=== PATIENT | male | born 1940 | race Caucasian/White ===

== ENCOUNTER → 2017-06-09 10:47 | Outpatient (CLI) | payer MEDICARE, OTHER, SELFPAY ==
[2017-06-09 11:56] LABS: INR 2.8 (0.9-1.3); Prothrombin Time 30.4 SECONDS (10.1-12.7)
[2017-06-09 12:08] LABS: BUN Creatinine Ratio 16.7 (6-22); Calcium 8.8 mg/dL (8.4-10.2); Estimated Glomerular Filt Rate > 60.0 mL/min (>60); Glucose 78 mg/dL (80-110); HEMOLYSIS < 15 (0-50); Potassium 4.7 mmol/L (3.4-5.1); Sodium 142 mmol/L (137-145)
== END ==
PROVIDERS: PCP Internal Medicine; Visit Provider Pharmacist Pharmacotherapy
DX: E87.8 Other disorders of electrolyte and fluid balance, not elsewhere classified (principal); Z79.01 Long term (current) use of anticoagulants; Z95.811 Presence of heart assist device
CPT/HCPCS: 36415; 80048; 85610

== ENCOUNTER → 2017-06-25 08:14 | Outpatient (CLI) | payer MEDICARE, OTHER, SELFPAY ==
--- NOTE | 2017-06-25 | DI.ECHO.S_ITS ---
[facility]---------+ [facility] +---------+ : : [address] : [place] : : : : [id number] : : : : Phone: [phone]+ Echocardiogram Report + + :Name: ESSENCE HOLT Study Date: 06/25/2017 Height: 71 in : :[facility] Exam Location: IS Weight: 189 lb: : Gender: Male BSA: 2.1 m2 : :: 1940 Age: 76 yrs : :Reason For Study: LVAD : :Ordering Physician: Dr. Madrigal : :Medardo Performed By: Nisha Page : :Referring: UNSPECIFIED : + + Interpretation Summary The left ventricle is severely dilated. The ejection fraction is estimated to be 10-15%. This is unchanged compared to the previous study. LVAD cannula seen in the left ventricular cavity. The right ventricle is at the upper limits of normal in size. Right ventricular systolic function is moderately reduced. There is a pacemaker lead in the right ventricle. There is trace tricuspid regurgitation. Compared to the prior echo exam, there has been a decrease in TR severity. There is mild mitral regurgitation. Compared to the prior echo study, there has been a decrease in the severity of mitral regurgitation. The IVC is of normal diameter and collapses less than 50% with a sniff. This suggests a right atrial pressure of 8 mm Hg. There is a small pericardial effusion (anterior to right ventricle) noted. There are no echocardiographic indications of cardiac tamponade. Procedure: A two-dimensional transthoracic echocardiogram with color flow and Doppler was performed. The study quality was technically limited. The study quality was technically difficult. Comparison is made with the echocardiogram of 05/16/16. I was unable to get a blood pressure reading due to the LVAD. The patient declined the use of definity.His LVAD was put in May of 2016. The heart rate ranged between 75-79 bpm during the study. The patient was in normal sinus rhythm during the exam. The patient had a bundle branch block rhythm during the exam. Left Ventricle: The left ventricle is severely dilated. There is normal left ventricular wall thickness. There is no thrombus. LVAD cannula seen in the left ventricular cavity. The ejection fraction is estimated to be 10-15%. This is unchanged compared to the previous study. There is severe global hypokinesis of the left ventricle. Could not assess diastolic function. Right Ventricle: The right ventricle is not well visualized. The right ventricle is at the upper limits of normal in size. There is a pacemaker lead in the right ventricle. Right ventricular systolic function is moderately reduced. Atria: Both atria are moderately dilated. The right atrium has mildly decreased in size since the prior echo exam. Mitral Valve: The mitral valve is not well visualized. There is mild mitral annular calcification. The mitral valve leaflets are slightly calcified. There is mild mitral regurgitation. Compared to the prior echo study, there has been a decrease in the severity of mitral regurgitation. Aortic Valve: The aortic valve is not well visualized. Tricuspid Valve: The tricuspid valve is not well visualized, but is grossly normal. There is trace tricuspid regurgitation. Compared to the prior echo exam, there has been a decrease in TR severity. Pulmonic Valve: The pulmonic valve is not well visualized. Great Vessels: The aortic root is normal size. The aortic arch could not be visualized. The ascending aorta could not be visualized. The pulmonary is not well visualized. The IVC is of normal diameter and collapses less than 50% with a sniff. This suggests a right atrial pressure of 8 mm Hg. Pericardium/ Pleura There is a small pericardial effusion noted. There are no echocardiographic indications of cardiac tamponade. There is no pleural effusion. MMode/2D Measurements & Calculations LVIDd: 6.7 cm Ao root diam: 2.8 cm LVIDs: 6.1 cm FS: 9.7 % EPSS: 2.6 cm IVSd: 0.76 cm LVPWd: 0.92 cm LV dyson. diameter/BSA (cm/m^2): 3.3 LV sys. diameter/BSA (cm/m^2): 3.0 LA A2 area: 27.5 cm2 RA long axis: 4.7 cm LA A4 area: 23.3 cm2 RA area: 20.1 cm2 LA length (vol): 6.0 cm RA vol: 73.1 ml LA vol: 90.6 ml RA : 35.5 ml/m2 LA vol index: 44.0 ml/m2 IVC diam: 1.3 cm Doppler Measurements & Calculations PA V2 max: 40.6 cm/sec PA V2 mean: 30.9 cm/sec PA mean P.41 mmHg PA Accel Time: 0.09 sec Reading Physician:ENEDINA
== END ==
PROVIDERS: PCP Internal Medicine; Visit Provider Nurse Practitioner Adult Health
DX: I51.7 Cardiomegaly (principal); I07.1 Rheumatic tricuspid insufficiency; I31.3 Pericardial effusion (noninflammatory)
CPT/HCPCS: 93306

== ENCOUNTER → 2017-06-29 12:24 | Outpatient (CLI) | payer MEDICARE, OTHER, SELFPAY ==
[2017-06-29 13:17] LABS: INR 2.6 (0.9-1.3); Prothrombin Time 28.1 SECONDS (10.1-12.7)
== END ==
PROVIDERS: PCP Internal Medicine; Visit Provider Pharmacist Pharmacotherapy
DX: Z79.01 Long term (current) use of anticoagulants (principal)
CPT/HCPCS: 36415; 85610

== ENCOUNTER → 2017-07-07 10:37 | Outpatient (CLI) | payer MEDICARE, OTHER, SELFPAY ==
[2017-07-07 12:55] LABS: INR 2.2 (0.9-1.3); Prothrombin Time 23.8 SECONDS (10.1-12.7)
== END ==
PROVIDERS: PCP Internal Medicine; Visit Provider Pharmacist Pharmacotherapy
DX: Z79.01 Long term (current) use of anticoagulants (principal)
CPT/HCPCS: 36415; 85610

== ENCOUNTER → 2017-07-14 10:30 | Outpatient (CLI) | payer MEDICARE, OTHER, SELFPAY ==
[2017-07-14 11:54] LABS: INR 2.5 (0.9-1.3); Prothrombin Time 26.8 SECONDS (10.1-12.7)
== END ==
PROVIDERS: PCP Internal Medicine; Visit Provider Pharmacist Pharmacotherapy
DX: Z79.01 Long term (current) use of anticoagulants (principal)
CPT/HCPCS: 36415; 85610

== ENCOUNTER → 2017-07-21 10:41 | Outpatient (CLI) | payer MEDICARE, OTHER, SELFPAY ==
[2017-07-21 11:38] LABS: INR 2.5 (0.9-1.3); Prothrombin Time 26.9 SECONDS (10.1-12.7)
== END ==
PROVIDERS: PCP Internal Medicine; Visit Provider Pharmacist Pharmacotherapy
DX: Z79.01 Long term (current) use of anticoagulants (principal)
CPT/HCPCS: 36415; 85610

== ENCOUNTER → 2017-07-24 10:05 | Outpatient (CLI) | payer MEDICARE, OTHER, SELFPAY ==
[2017-07-24 10:58] LABS: Add Manual Diff / Slide Review NO; Basophils Percent Auto 0.7 % (0-2); Eosinophils Percent Auto 3.7 % (2-4); Hematocrit 42.8 % (41-53); Hemoglobin 14.5 g/dL (13.5-17.5); Lymphocytes Percent Auto 27.1 % (25-40); Mean Corpuscular HGB Conc 33.8 % (30-36); Mean Corpuscular Hemoglobin 28.9 PG (26-34); Mean Corpuscular Volume 85.5 fL (80-100); Monocytes Percent Auto 10.4 % (3-14); Neutrophils Absolute Auto 6200 /uL (3000-5900); Neutrophils Percent Auto 58.1 % (50-75); Platelet Count 179 X10^3/uL (150-400); Red Blood Cell Count 5.01 X10^6/uL (4.5-5.9); Red Cell Distribution Width 14.2 % (11.6-14.8); White Blood Cell Count 10.7 X10^3/uL (4.5-11.0)
== END ==
PROVIDERS: PCP Internal Medicine; Visit Provider Internal Medicine Advanced Heart Failure and Transplant Cardiology
DX: I42.9 Cardiomyopathy, unspecified (principal); Z95.811 Presence of heart assist device
CPT/HCPCS: 36415; 85025

== ENCOUNTER → 2017-07-28 10:38 | Outpatient (CLI) | payer MEDICARE, OTHER, SELFPAY ==
[2017-07-28 12:02] LABS: BUN Creatinine Ratio 23.3 (6-22); Blood Urea Nitrogen 21 mg/dL (9-20); Calcium 9.4 mg/dL (8.4-10.2); Carbon Dioxide 28 mmol/L (22-32); Chloride 102 mmol/L (98-107); Estimated Glomerular Filt Rate > 60.0 mL/min (>60); Glucose 76 mg/dL (80-110); HEMOLYSIS < 15 (0-50); Sodium 142 mmol/L (137-145)
== END ==
PROVIDERS: PCP Internal Medicine; Visit Provider Internal Medicine Advanced Heart Failure and Transplant Cardiology
DX: Z95.811 Presence of heart assist device (principal); E87.8 Other disorders of electrolyte and fluid balance, not elsewhere classified
CPT/HCPCS: 36415; 80048

== ENCOUNTER → 2017-08-04 10:31 | Outpatient (CLI) | payer MEDICARE, OTHER, SELFPAY ==
[2017-08-04 12:46] LABS: INR 2.6 (0.9-1.3); Prothrombin Time 28.2 SECONDS (10.1-12.7)
== END ==
PROVIDERS: PCP Internal Medicine; Visit Provider Pharmacist Pharmacotherapy
DX: Z79.01 Long term (current) use of anticoagulants (principal)
CPT/HCPCS: 36415; 85610

== ENCOUNTER → 2017-08-07 09:57 | Outpatient (CLI) | payer MEDICARE, OTHER, SELFPAY ==
[2017-08-07 10:45] LABS: Blood Urea Nitrogen 20 mg/dL (9-20); Calcium 9.1 mg/dL (8.4-10.2); Carbon Dioxide 30 mmol/L (22-32); Chloride 102 mmol/L (98-107); Estimated Glomerular Filt Rate > 60.0 mL/min (>60); Glucose 64 mg/dL (80-110); HEMOLYSIS < 15 (0-50); Potassium 4.4 mmol/L (3.4-5.1); Sodium 142 mmol/L (137-145)
== END ==
PROVIDERS: PCP Internal Medicine; Visit Provider Internal Medicine Advanced Heart Failure and Transplant Cardiology
DX: Z95.811 Presence of heart assist device (principal); E87.8 Other disorders of electrolyte and fluid balance, not elsewhere classified
CPT/HCPCS: 36415; 80048

== ENCOUNTER → 2017-09-01 10:28 | Outpatient (CLI) | payer MEDICARE, OTHER, SELFPAY ==
[2017-09-01 11:26] LABS: INR 2.6 (0.9-1.3); Prothrombin Time 29.4 SECONDS (10.1-12.7)
== END ==
PROVIDERS: PCP Internal Medicine; Visit Provider Pharmacist Pharmacotherapy
DX: Z79.01 Long term (current) use of anticoagulants (principal)
CPT/HCPCS: 36415; 85610

== ENCOUNTER → 2017-09-15 10:18 | Outpatient (CLI) | payer MEDICARE, OTHER, SELFPAY ==
[2017-09-15 13:19] LABS: INR 2.7 (0.9-1.3); Prothrombin Time 29.8 SECONDS (10.1-12.7)
== END ==
PROVIDERS: PCP Internal Medicine; Visit Provider Pharmacist Pharmacotherapy
DX: Z79.01 Long term (current) use of anticoagulants (principal)
CPT/HCPCS: 36415; 85610

== ENCOUNTER → 2017-09-29 10:40 | Outpatient (CLI) | payer MEDICARE, OTHER, SELFPAY ==
[2017-09-29 11:17] LABS: INR 2.8 (0.9-1.3); Prothrombin Time 31.1 SECONDS (10.1-12.7)
== END ==
PROVIDERS: PCP Internal Medicine; Visit Provider Pharmacist Pharmacotherapy
DX: Z79.01 Long term (current) use of anticoagulants (principal)
CPT/HCPCS: 36415; 85610

== ENCOUNTER → 2017-11-03 11:05 | Outpatient (CLI) | payer MEDICARE, OTHER, SELFPAY ==
[2017-11-03 12:40] LABS: INR 2.9 (0.9-1.3); Prothrombin Time 32.7 SECONDS (10.1-12.7)
== END ==
PROVIDERS: PCP Internal Medicine; Visit Provider Pharmacist Pharmacotherapy
DX: Z79.01 Long term (current) use of anticoagulants (principal)
CPT/HCPCS: 36415; 85610

== ENCOUNTER → 2017-11-17 10:33 | Outpatient (CLI) | payer MEDICARE, OTHER, SELFPAY ==
[2017-11-17 12:03] LABS: INR 2.8 (0.9-1.3); Prothrombin Time 30.9 SECONDS (10.1-12.7)
== END ==
PROVIDERS: PCP Internal Medicine; Visit Provider Pharmacist Pharmacotherapy
DX: Z79.01 Long term (current) use of anticoagulants (principal)
CPT/HCPCS: 36415; 85610

== ENCOUNTER → 2017-12-01 10:59 | Outpatient (CLI) | payer MEDICARE, OTHER, SELFPAY ==
[2017-12-01 12:16] LABS: INR 2.9 (0.9-1.3); Prothrombin Time 32.4 SECONDS (10.1-12.7)
== END ==
PROVIDERS: PCP Internal Medicine; Visit Provider Pharmacist
DX: Z79.01 Long term (current) use of anticoagulants (principal)
CPT/HCPCS: 36415; 85610

== ENCOUNTER 2018-01-19 14:11 | Emergency (ER) | payer MEDICARE, OTHER, SELFPAY ==
[2018-01-19] VITALS (10 sets, daily range): PULSE 103–115; RESP 22–37; O2SAT 91–96; BMI 27.9
--- NOTE | 2018-01-19 14:17 | DI.RAD.S_ITS ---
PROCEDURE: XR CHEST 1V INDICATIONS: short of breath TECHNIQUE: One view of the chest was acquired. COMPARISON: [facility], , CHEST 1 VIEW, 05/11/2016, 22:00. FINDINGS: Surgical changes and devices: Left chest wall AICD appear stable in position. There is an overlying device projecting over the left lung base peripherally as well as post surgical change. Lungs and pleura: There is a probable small left pleural effusion with associated left basilar consolidation or compressive atelectasis. There is increased pulmonary edema. Mediastinum: Mediastinal contours appear unchanged. Heart size is enlarged. Bones and chest wall: No suspicious bony lesions. Overlying soft tissues appear unremarkable. IMPRESSION: 1. Probable small left pleural effusion with left basilar consolidation or compressive atelectasis. 2. Bilateral pulmonary edema. Dictated by: Kenan Swenson M.D. on 01/19/2018 at 14:58 Approved by: Kenan Swenson M.D. on 01/19/2018 at 15:09
[2018-01-19 14:32] LABS: Add Manual Diff / Slide Review NO; Basophils Percent Auto 0.2 % (0-2); Hematocrit 39.6 % (41-53); Hemoglobin 13.1 g/dL (13.5-17.5); Lymphocytes Percent Auto 1.9 % (25-40); Mean Corpuscular HGB Conc 33.1 % (30-36); Mean Corpuscular Hemoglobin 27.2 PG (26-34); Mean Corpuscular Volume 82.3 fL (80-100); Monocytes Percent Auto 3.5 % (3-14); Neutrophils Absolute Auto 22200 /uL (3000-5900); Neutrophils Percent Auto 94.4 % (50-75); Platelet Count 191 X10^3/uL (150-400); Red Blood Cell Count 4.81 X10^6/uL (4.5-5.9); Red Cell Distribution Width 15.1 % (11.6-14.8); White Blood Cell Count 23.5 X10^3/uL (4.5-11.0)
[2018-01-19 14:50] LABS: Alanine Aminotransferase 26 IU/L (21-72); Albumin 4.5 g/dL (3.5-5.0); Albumin Globulin Ratio 1.6 (1.0-2.8); Alkaline Phosphatase 94 U/L (38-126); Aspartate Aminotransferase 27 IU/L (17-59); Bilirubin Total 1.2 mg/dL (0.2-1.3); Blood Urea Nitrogen 18 mg/dL (9-20); Calcium 8.9 mg/dL (8.4-10.2); Carbon Dioxide 23 mmol/L (22-32); Chloride 103 mmol/L (98-107); Creatine Kinase 131 U/L (55-170); Estimated Glomerular Filt Rate > 60.0 mL/min (>60); Globulin 2.9 g/dL (1.7-4.1); Glucose 228 mg/dL (80-110); HEMOLYSIS < 15 (0-50); Magnesium 1.8 mg/dL (1.6-2.3); Potassium 4.3 mmol/L (3.4-5.1); Sodium 142 mmol/L (137-145); Total Protein 7.4 g/dL (6.3-8.2)
[2018-01-19 14:56] LABS: INR 5.1 (0.9-1.3); PTT Partial Thromboplastin Tim 53 SECONDS (26.4-36.2)
[2018-01-19 15:05] LABS: Creatine Kinase MB 3.99 ng/mL (<2.37)
--- NOTE | 2018-01-19 15:09 | ED.SOB ---
HPI - SOB/Dyspnea General Chief Complaint: Shortness of Breath/Dyspnea Stated Complaint: SOB Time Seen by Provider: 01/19/18 14:16 Source: patient and EMS Mode of arrival: EMS Limitations: no limitations History of Present Illness Patient is a 77-year-old male with history of LVAD, COPD severe CHF presenting with shortness of breath. He recently got back from a long trip. He has had increased productive cough no body aches or chest pain. Today his shortness of breath got much worse and required EMS. He says that he took a 40 mg dose of prednisone this morning because that usually helps with his coughing. He has it did not help with his coughing. He has not had a documented fever. MD Complaint: shortness of breath and cough Severity: moderate Relieving factors: oxygen Known history of: congestive heart failure Related Data Home Medications Medication Instructions Recorded Confirmed atorvastatin [Lipitor] 10 mg PO DAILY #0 05/11/16 01/19/18 lorazepam 0.5 - 1 mg PO Q8H PRN #0 05/11/16 01/19/18 acetaminophen [Tylenol] 650 mg PO PRN PRN 01/19/18 01/19/18 albuterol sulfate 2.5 mg INHALATION Q6-8H PRN 01/19/18 01/19/18 albuterol sulfate 3 ml INHALATION PRN PRN 01/19/18 01/19/18 albuterol sulfate [ProAir HFA] 2 puff INHALATION Q4H PRN 01/19/18 01/19/18 amiodarone 200 mg PO DAILY 01/19/18 01/19/18 aspirin 324 mg PO DAILY 01/19/18 01/19/18 docusate sodium 100 mg PO PRN PRN 01/19/18 01/19/18 fluticasone-salmeterol [Advair 1 puff INHALATION BID 01/19/18 01/19/18 Diskus] glipizide 5 mg PO DAILY 01/19/18 01/19/18 loratadine 10 mg PO DAILY PRN 01/19/18 01/19/18 magnesium hydroxide 400 mg PO BID 01/19/18 01/19/18 metoprolol succinate 12.5 mg PO BID 01/19/18 01/19/18 multivitamin 1 tab PO DAILY 01/19/18 01/19/18 pantoprazole 40 mg PO DAILY 01/19/18 01/19/18 polyethylene glycol 3350 17 g PO DAILY 01/19/18 01/19/18 prednisone 10 mg PO DAILY PRN 01/19/18 01/19/18 sennosides [senna] 17.2 mg PO BEDTIME PRN 01/19/18 01/19/18 sodium chloride 2 spray INTRANASAL Q2H PRN 01/19/18 01/19/18 tiotropium bromide [Spiriva with 1 cap INHALATION QAM 01/19/18 01/19/18 HandiHaler] torsemide 10 mg PO DAILY 01/19/18 01/19/18 triazolam 0.125 mg PO BEDTIME PRN 01/19/18 01/19/18 warfarin 4 mg PO SUMOWETHFRSA 01/19/18 01/19/18 warfarin 5 mg PO TU 01/19/18 01/19/18 Allergies Allergy/AdvReac Type Severity Reaction Status Date / Time metformin Allergy Intermediate SOB Verified 01/19/18 14:16 azithromycin [AZITHROMYCIN] Allergy Unknown Verified 01/19/18 14:16 lovastatin [LOVASTATIN] Allergy Unknown NECK PAIN Verified 01/19/18 14:16 oxycodone [From PERCOCET] Allergy Unknown RASH Verified 01/19/18 14:16 Penicillins Allergy Unknown Verified 01/19/18 14:16 pravastatin [PRAVASTATIN] Allergy Unknown Verified 01/19/18 14:16 Sulfa (Sulfonamide Allergy Unknown Verified 01/19/18 14:16 Antibiotics) levofloxacin [From LEVAQUIN] AdvReac Unknown BURSITIS Verified 01/19/18 14:16 Review of Systems Review of Systems All systems reviewed & are unremarkable except as noted in HPI and below Constitutional Denies chills, Denies fever(s), Denies lethargy and Reports weakness Cardiovascular Reports as per HPI and Reports dyspnea Respiratory Reports as per HPI, Reports cough, Denies hemoptysis, Reports excessive phlegm production and Reports dyspnea Gastrointestinal Gastrointestinal: Denies abdominal pain, Denies change in bowel habits, Denies diarrhea, Denies nausea and Denies vomiting Musculoskeletal Denies back pain, Denies muscle weakness, Denies numbness and Denies tingling Integumentary/Breasts Denies pruritus, Denies erythema, Denies rash and Denies wounds Neurologic Denies numbness, Denies tingling and Reports weakness PFSH Medical History CHF (congestive heart failure) (Chronic) COPD (chronic obstructive pulmonary disease) (Chronic) LVAD (left ventricular assist device) present (Chronic) Social History marital status: Exam Initial Vital Signs Initial Vital Signs: Vital Signs Respiratory Rate 22 01/19/18 14:16 Pulse Oximetry 96 01/19/18 14:16 Const General: cooperative, in distress and ill appearing (Chronically ill) Nutritional Appearance: average body habitus Orientation: alert, awake and oriented x3 HENMT Head: normal to inspection and normocephalic Eyes General: appearance normal, both eyes and all related structures Neck Neck: normal visual inspection, full ROM and JVD Chest Chest: normal inspection of the chest Resp Effort & Inspection: normal respiratory effort, not able to speak in complete sentences, tachypneic and no use of accessory muscles Auscultation: clear to auscultation bilaterally, crackles, no rales, no rhonchi and wheezes Cardio Pulses: radial pulses present Other: LVAD present GI Inspection: non-distended Palpation: soft, no hepatosplenomegaly, No guarding, No pulsatile mass and No tender Auscultation: normal bowel sounds Skin General: no rashes or lesions noted, No jaundice and No petechiae Neuro General: alert, oriented x3, gait normal and no focal motor deficits Speech: speech normal Extrem General: full ROM, no clubbing, cyanosis or edema, no pedal edema and no calf tenderness Course Orders Ordered: ED Orders 01/19/18 14:17 Consult to Respiratory Therapy Evaluate & Treat XR chest 1V Stat EKG-12 Lead Stat 01/19/18 14:25 B Type Natriuretic Peptide Stat Complete Blood Count AUTO DIFF Stat Comprehensive Metabolic Panel Stat Lactate (Lactic Acid) Stat Magnesium Stat Partial Thromboplastin Time Stat Prothrombin Time INR Stat Troponin & CK Cardiac Panel Stat 01/19/18 15:10 Blood Culture Stat 01/19/18 15:21 Influenza A and B by PCR Rapid Stat Discontinued Medications Albuterol (Ventolin) 5 mg INH NOW ONE Stop: 01/19/18 17:10 Last Admin: 01/19/18 17:30 Dose: 5 mg Albuterol/Ipratropium (Duoneb) 3 ml INH NOW ONE Stop: 01/19/18 16:56 Last Admin: 01/19/18 16:57 Dose: 3 ml Ceftriaxone Sodium/Dextrose (Rocephin) 1 gm in 50 mls @ 100 mls/hr IV NOW ONE Stop: 01/19/18 15:54 Last Infusion: 01/19/18 16:11 Dose: 0 mls/hr Admin: 01/19/18 15:35 Dose: 100 mls/hr Vancomycin HCl 1,250 mg/ (Sodium Chloride) 250 mls @ 250 mls/hr IV NOW ONE Stop: 01/19/18 15:23 Last Infusion: 01/19/18 17:16 Dose: 0 mls/hr Admin: 01/19/18 15:49 Dose: 250 mls/hr Vital Signs - 8 hr 01/19/18 14:16 01/19/18 14:20 01/19/18 15:00 Pulse Rate Respiratory Rate 22 30 H 32 H Pulse Oximetry 96 93 91 01/19/18 16:01 01/19/18 16:58 Pulse Rate 103 H Respiratory Rate 35 H 37 H Pulse Oximetry 92 93 MDM - SOB/Dyspnea Lab Data Attestation: I reviewed the patient's lab results. Result diagrams: 01/19/18 14:25 01/19/18 14:25 Lab Results 01/19/18 01/19/18 01/19/18 Range/Units 14:25 14:25 14:25 WBC 23.5 H (4.5-11.0) X10^3/uL RBC 4.81 (4.5-5.9) X10^6/uL Hgb 13.1 L (13.5-17.5) g/dL Hct 39.6 L (41-53) % MCV 82.3 (80-100) fL MCH 27.2 (26-34) PG MCHC 33.1 (30-36) % RDW 15.1 H (11.6-14.8) % Plt Count 191 (150-400) X10^3/uL Neut % (Auto) 94.4 H (50-75) % Lymph % (Auto) 1.9 L (25-40) % [place] % (Auto) 3.5 (3-14) % Eos % (Auto) 0.0 L (2-4) % Baso % (Auto) 0.2 (0-2) % Neut # (Auto) 50154 H (6913-3403) /uL PT 60.0 H (10.1-12.7) SECONDS INR 5.1 H* (0.9-1.3) APTT 53 H (26.4-36.2) SECONDS ABG pH (7.35-7.45) ABG pCO2 (35-45) mmHg ABG pO2 (80-100) mmHg ABG HCO3 (22-26) mmol/L ABG Total CO2 (21-31) mmol/L ABG O2 Saturation (95-100) % ABG Base Excess (-2-2) mmol/L FiO2 Sodium 142 (137-145) mmol/L Potassium 4.3 (3.4-5.1) mmol/L Chloride 103 (98-107) mmol/L Carbon Dioxide 23 (22-32) mmol/L BUN 18 (9-20) mg/dL Creatinine 1.00 (0.66-1.25) mg/dL Estimated GFR > 60.0 (>60) mL/min BUN/Creatinine Ratio 18.0 (6-22) Glucose 228 H (80-110) mg/dL Lactate (0.7-2.1) mmol/L Calcium 8.9 (8.4-10.2) mg/dL Magnesium 1.8 (1.6-2.3) mg/dL Total Bilirubin 1.2 (0.2-1.3) mg/dL AST 27 (17-59) IU/L ALT 26 (21-72) IU/L Alkaline Phosphatase 94 (38-126) U/L Total Creatine Kinase 131 (55-170) U/L CK-MB (CK-2) 3.99 H (<2.37) ng/mL CK-MB (CK-2) Rel Index 3.0 (1.5-5.0) % Troponin I 0.020 (0.01-0.034) ng/mL B-Natriuretic Peptide 566.0 H (<100) Total Protein 7.4 (6.3-8.2) g/dL Albumin 4.5 (3.5-5.0) g/dL Globulin 2.9 (1.7-4.1) g/dL Albumin/Globulin Ratio 1.6 (1.0-2.8) Influenza A & B (PCR) (Negative) 01/19/18 01/19/18 01/19/18 Range/Units 14:25 15:30 17:24 WBC (4.5-11.0) X10^3/uL RBC (4.5-5.9) X10^6/uL Hgb (13.5-17.5) g/dL Hct (41-53) % MCV (80-100) fL MCH (26-34) PG MCHC (30-36) % RDW (11.6-14.8) % Plt Count (150-400) X10^3/uL Neut % (Auto) (50-75) % Lymph % (Auto) (25-40) % Nicollet % (Auto) (3-14) % Eos % (Auto) (2-4) % Baso % (Auto) (0-2) % Neut # (Auto) (1690-9881) /uL PT (10.1-12.7) SECONDS INR (0.9-1.3) APTT (26.4-36.2) SECONDS ABG pH 7.34 L (7.35-7.45) ABG pCO2 37.7 (35-45) mmHg ABG pO2 73 L (80-100) mmHg ABG HCO3 20 L (22-26) mmol/L ABG Total CO2 21 (21-31) mmol/L ABG O2 Saturation 94 L (95-100) % ABG Base Excess -6.0 L (-2-2) mmol/L FiO2 32 Sodium (137-145) mmol/L Potassium (3.4-5.1) mmol/L Chloride (98-107) mmol/L Carbon Dioxide (22-32) mmol/L BUN (9-20) mg/dL Creatinine (0.66-1.25) mg/dL Estimated GFR (>60) mL/min BUN/Creatinine Ratio (6-22) Glucose (80-110) mg/dL Lactate 3.0 H (0.7-2.1) mmol/L Calcium (8.4-10.2) mg/dL Magnesium (1.6-2.3) mg/dL Total Bilirubin (0.2-1.3) mg/dL AST (17-59) IU/L ALT (21-72) IU/L Alkaline Phosphatase (38-126) U/L Total Creatine Kinase (55-170) U/L CK-MB (CK-2) (<2.37) ng/mL CK-MB (CK-2) Rel Index (1.5-5.0) % Troponin I (0.01-0.034) ng/mL B-Natriuretic Peptide (<100) Total Protein (6.3-8.2) g/dL Albumin (3.5-5.0) g/dL Globulin (1.7-4.1) g/dL Albumin/Globulin Ratio (1.0-2.8) Influenza A & B (PCR) Negative (Negative) [facility] Narrative Medical decision making narrative: Patient has leukocytosis he did take 1 dose of prednisone however I do not suspect this to be the cause of his leukocytosis. He also has an elevated lactate. He afebrile. X-ray does show some mild effusion and left basilar consolidation. This and patient's symptoms of productive cough and difficulty breathing suggestive of pneumonia. Unlikely to be PE his INR is supratherapeutic. 2:[address] Nunez, recruit instructor at [facility] has been updated on patient's symptoms and test results. At this time does not recommend fluids 5:10 p.m. patient beginning to have more increased difficulty breathing. A respiratory rate 30s. I have listened and he is wheezy. His MAP has decreased slightly over time initially 95,67 now 72. He did receive a DuoNeb treatment by respiratory is he has had that did help a little bit but he still seems to be in respiratory distress. He is getting 5 mg of albuterol an ABG ordered. Patient was unable to finish his albuterol he feels the mask is claustrophobic. Mask has been removed he is sleeping now. ABG slightly hypoxic, does not need BiPAP at this time. He is empirically given antibiotics for pneumonia. Vancomycin and Rocephin. He is allergic to penicillin. Critical Care Time Critical Care Time: Yes Total Critical Care Time: 30 Attestation: The high probability of a clinically significant, sudden or life threatening deterioration of the [cardiovascular] system(s) required my full and direct attention, intervention and personal management. The aggregate critical care time was [45] minutes. This time is in addition to time spent performing reported procedures but includes the following: [x] Data Review and interpretation [x] Patient assessment and monitoring of vital signs [x] Documentation [x] Medication orders and management Discharge Plan Departure Patient Disposition: [facility] Clinical Impression: Pneumonia Prescriptions: No Action atorvastatin [Lipitor] 10 MG tablet 10 mg PO DAILY Qty: 0 RF: 0 lorazepam 1 MG tablet 0.5 - 1 mg PO Q8H PRN (Reason: Anxiety) Qty: 0 RF: 0 fluticasone-salmeterol [Advair Diskus] 500-50 mcg/dose Blister With Device 1 puff Inhalation BID RF: 0 metoprolol succinate 25 mg Tablet Extended Release 24 Hr 12.5 mg PO BID RF: 0 multivitamin Tablet 1 tab PO DAILY RF: 0 albuterol sulfate 0.63 mg/3 mL Solution For Nebulization 3 ml Inhalation PRN PRN (Reason: Shortness Of Breath) RF: 0 albuterol sulfate 2.5 mg /3 mL (0.083 %) Solution For Nebulization 2.5 mg INHALATION Q6-8H PRN (Reason: Shortness Of Breath) RF: 0 amiodarone 200 mg Tablet 200 mg PO DAILY RF: 0 docusate sodium 100 mg Capsule 100 mg PO PRN PRN (Reason: Constipation) RF: 0 aspirin 81 mg Tablet,Chewable 324 mg PO DAILY RF: 0 loratadine 10 mg Tablet 10 mg PO DAILY PRN (Reason: Allergy Symptoms) RF: 0 glipizide 5 mg Tablet 5 mg PO DAILY RF: 0 magnesium hydroxide 400 mg (170 mg) Tablet,Chewable 400 mg PO BID RF: 0 sennosides [senna] 8.6 mg Tablet 17.2 mg PO BEDTIME PRN (Reason: Constipation) RF: 0 acetaminophen [Tylenol] 325 mg Tablet 650 mg PO PRN PRN (Reason: pain) RF: 0 prednisone 10 mg Tablet 10 mg PO DAILY PRN (Reason: unknown) RF: 0 torsemide 20 mg Tablet 10 mg PO DAILY RF: 0 polyethylene glycol 3350 17 gram Powder In Packet 17 g PO DAILY RF: 0 triazolam 0.125 mg Tablet 0.125 mg PO BEDTIME PRN (Reason: Sleep) RF: 0 pantoprazole 40 mg Tablet,Delayed Release (Dr/Ec) 40 mg PO DAILY RF: 0 warfarin 2 mg Tablet 5 mg PO RF: 0 warfarin 2 mg Tablet 4 mg PO RF: 0 albuterol sulfate [ProAir HFA] 90 mcg/actuation HFA aerosol inhaler 2 puff Inhalation Q4H PRN (Reason: Shortness Of Breath) RF: 0 sodium chloride 0.65 % Aerosol,[place] 2 spray INTRANASAL Q2H PRN (Reason: Congestion) RF: 0 tiotropium bromide [Spiriva with HandiHaler] 18 mcg capsule, w/inhalation device 1 cap Inhalation QAM RF: 0 Referrals: Rohan Batres MD [Primary Care Provider] -
[2018-01-19] MEDS: CEFTRIAXONE 1 GM/50 ML FROZ.PIGGY IV (15:35)
[2018-01-19] MEDS: VANCOMYCIN 1,250 MG in SODIUM CHLORIDE 0.9% 250 ML IV (15:49)
[2018-01-19 15:53] LABS: Influenza A and B by PCR Rapid Negative (Negative)
--- NOTE | 2018-01-19 16:00 | PC.NURSE ---
MAP with manual cuff and doppler is 95 on left wrist.
--- NOTE | 2018-01-19 16:02 | PC.NURSE ---
MAP 69 with doppler and manual cuff on left wrist.
--- NOTE | 2018-01-19 16:55 | PC.NURSE ---
MAP of 72 with manual cuff and doppler on left wrist.
[2018-01-19] MEDS: ALBUTEROL/IPRATROPIUM 3 ML AMPUL INH (16:57)
[2018-01-19] MEDS: ALBUTEROL 2.5 MG/3 ML NEB (ADULT) 5 MG INH (17:30)
[2018-01-19 17:31] LABS: pH ABG 7.34 (7.35-7.45)
[2018-01-19 17:32] LABS: Fractionated Inspired Oxygen 32; HCO3 ABG 20 mmol/L (22-26); Oxygen Saturation ABG 94 % (95-100); PCO2 ABG 37.7 mmHg (35-45); PO2 ABG 73 mmHg (80-100); TCO2 ABG 21 mmol/L (21-31)
[2018-01-19 18:31] LABS: Reflexed Lactate in 2 Hours Y
--- NOTE | 2018-01-19 18:58 | PC.NURSE ---
MAP is 72 measured on left wrist with manual cuff and doppler.
[2018-01-19 19:00] LABS: Lactate 2HR (Lactic Acid Rflx) 3.1 mmol/L (0.7-2.1)
== END 2018-01-19 20:12 | disposition short-term general hospital (02) ==
PROVIDERS: Emergency Provider Emergency Medicine; PCP Internal Medicine
DX: J18.9 Pneumonia, unspecified organism (principal)
CPT/HCPCS: 36415; 36591; 36600; 71045; 80053; 82550; 82553; 82805; 83605; 83735; 83880; 84484; 85025; 85610; 85730; 87040; 87400; 93005; 93010; 93041; 94640; 96365; 96366; 96368; 99285; 99291; J7613

== ENCOUNTER → 2018-02-03 10:47 | Outpatient (CLI) | payer MEDICARE, OTHER, SELFPAY ==
[2018-02-03 11:38] LABS: INR 3.1 (0.9-1.3); Prothrombin Time 36.4 SECONDS (10.1-12.7)
== END ==
PROVIDERS: PCP Internal Medicine; Visit Provider Pharmacist
DX: Z79.01 Long term (current) use of anticoagulants (principal)
CPT/HCPCS: 36415; 85610

== ENCOUNTER → 2018-02-08 10:56 | Outpatient (CLI) | payer MEDICARE, OTHER, SELFPAY ==
[2018-02-08 12:25] LABS: INR 2.7 (0.9-1.3); Prothrombin Time 31.8 SECONDS (10.1-12.7)
== END ==
PROVIDERS: PCP Internal Medicine; Visit Provider Pharmacist
DX: Z79.01 Long term (current) use of anticoagulants (principal)
CPT/HCPCS: 36415; 85610

== ENCOUNTER → 2018-02-17 10:49 | Outpatient (CLI) | payer MEDICARE, OTHER, SELFPAY ==
[2018-02-17 12:05] LABS: INR 2.9 (0.9-1.3); Prothrombin Time 34.3 SECONDS (10.1-12.7)
== END ==
PROVIDERS: Family Provider Internal Medicine; PCP Internal Medicine; Visit Provider Pharmacist
DX: Z79.01 Long term (current) use of anticoagulants (principal)
CPT/HCPCS: 36415; 85610

== ENCOUNTER → 2018-02-24 09:47 | Outpatient (CLI) | payer MEDICARE, OTHER, SELFPAY ==
[2018-02-24 12:00] LABS: INR 2.7 (0.9-1.3); Prothrombin Time 31.5 SECONDS (10.1-12.7)
== END ==
PROVIDERS: Pharmacist; Family Provider Internal Medicine; PCP Internal Medicine; Visit Provider Pharmacist Pharmacotherapy
DX: Z79.01 Long term (current) use of anticoagulants (principal)
CPT/HCPCS: 36415; 85610

== ENCOUNTER → 2018-03-03 10:45 | Outpatient (CLI) | payer MEDICARE, OTHER, SELFPAY ==
[2018-03-03 11:39] LABS: INR 2.4 (0.9-1.3); Prothrombin Time 27.8 SECONDS (10.1-12.7)
== END ==
PROVIDERS: Family Provider Internal Medicine; PCP Internal Medicine; Visit Provider Pharmacist
DX: Z79.01 Long term (current) use of anticoagulants (principal)
CPT/HCPCS: 36415; 85610

== ENCOUNTER → 2018-03-10 10:34 | Outpatient (CLI) | payer MEDICARE, OTHER, SELFPAY ==
[2018-03-10 11:31] LABS: INR 2.2 (0.9-1.3); Prothrombin Time 25.8 SECONDS (10.1-12.7)
== END ==
PROVIDERS: Family Provider Internal Medicine; PCP Internal Medicine; Visit Provider Pharmacist
DX: Z79.01 Long term (current) use of anticoagulants (principal)
CPT/HCPCS: 36415; 85610

== ENCOUNTER → 2018-03-17 12:24 | Outpatient (CLI) | payer MEDICARE, OTHER, SELFPAY ==
[2018-03-17 14:13] LABS: INR 2.4 (0.9-1.3); Prothrombin Time 27.7 SECONDS (10.1-12.7)
== END ==
PROVIDERS: Family Provider Internal Medicine; PCP Internal Medicine; Visit Provider Pharmacist Pharmacotherapy
DX: Z79.01 Long term (current) use of anticoagulants (principal)
CPT/HCPCS: 36415; 85610

== ENCOUNTER → 2018-03-24 10:49 | Outpatient (CLI) | payer MEDICARE, OTHER, SELFPAY ==
[2018-03-24 11:25] LABS: INR 2.9 (0.9-1.3); Prothrombin Time 33.5 SECONDS (10.1-12.7)
== END ==
PROVIDERS: Family Provider Internal Medicine; PCP Internal Medicine; Visit Provider Pharmacist
DX: Z79.01 Long term (current) use of anticoagulants (principal)
CPT/HCPCS: 36415; 85610

== ENCOUNTER → 2018-04-07 10:21 | Outpatient (CLI) | payer MEDICARE, OTHER, SELFPAY ==
[2018-04-07 11:03] LABS: Hematocrit 38.4 % (41-53); Hemoglobin 11.9 g/dL (13.5-17.5); Mean Corpuscular Volume 74.3 fL (80-100); Platelet Count 193 X10^3/uL (150-400); Red Blood Cell Count 5.17 X10^6/uL (4.5-5.9); Red Cell Distribution Width 16.7 % (11.6-14.8); White Blood Cell Count 9.1 X10^3/uL (4.5-11.0)
[2018-04-07 11:25] LABS: INR 2.3 (0.9-1.3); Prothrombin Time 27.2 SECONDS (10.1-12.7)
[2018-04-07 11:30] LABS: BUN Creatinine Ratio 21.7 (6-22); Blood Urea Nitrogen 26 mg/dL (9-20); Calcium 9.3 mg/dL (8.4-10.2); Carbon Dioxide 32 mmol/L (22-32); Chloride 101 mmol/L (98-107); Glucose 115 mg/dL (80-110); HEMOLYSIS < 15 (0-50); Sodium 142 mmol/L (137-145)
== END ==
PROVIDERS: PCP Internal Medicine; Visit Provider Internal Medicine Cardiovascular Disease
DX: I50.22 Chronic systolic (congestive) heart failure (principal); Z95.811 Presence of heart assist device; Z79.01 Long term (current) use of anticoagulants
CPT/HCPCS: 36415; 80048; 83735; 85027; 85610

== ENCOUNTER → 2018-04-14 10:21 | Outpatient (CLI) | payer MEDICARE, OTHER, SELFPAY ==
[2018-04-14 11:30] LABS: INR 2.7 (0.9-1.3)
== END ==
PROVIDERS: PCP Internal Medicine; Visit Provider Pharmacist
DX: Z79.01 Long term (current) use of anticoagulants (principal)
CPT/HCPCS: 36415; 85610

== ENCOUNTER → 2018-04-22 14:36 | Outpatient (CLI) | payer MEDICARE, OTHER, SELFPAY ==
[2018-04-22 15:21] LABS: INR 3.5 (0.9-1.3); Prothrombin Time 40.8 SECONDS (10.1-12.7)
== END ==
PROVIDERS: PCP Internal Medicine; Visit Provider Pharmacist
DX: Z79.01 Long term (current) use of anticoagulants (principal)
CPT/HCPCS: 36415; 85610

== ENCOUNTER → 2018-04-29 10:19 | Outpatient (CLI) | payer MEDICARE, OTHER, SELFPAY ==
[2018-04-29 15:56] LABS: Prothrombin Time 70.4 SECONDS (10.1-12.7)
[2018-04-29 16:03] LABS: INR 5.9 (0.9-1.3)
== END ==
PROVIDERS: Family Provider Internal Medicine; PCP Internal Medicine; Visit Provider Pharmacist
DX: Z79.01 Long term (current) use of anticoagulants (principal)
CPT/HCPCS: 85610

== ENCOUNTER → 2018-04-30 10:32 | Outpatient (CLI) | payer MEDICARE, OTHER, SELFPAY ==
[2018-04-30 11:13] LABS: INR 4.5 (0.9-1.3); Prothrombin Time 54.3 SECONDS (10.1-12.7)
== END ==
PROVIDERS: PCP Internal Medicine; Visit Provider Internal Medicine Cardiovascular Disease
DX: I50.22 Chronic systolic (congestive) heart failure (principal); Z95.811 Presence of heart assist device
CPT/HCPCS: 36415; 85610

== ENCOUNTER → 2018-05-03 10:35 | Outpatient (CLI) | payer MEDICARE, OTHER, SELFPAY ==
[2018-05-03 12:30] LABS: INR 2.4 (0.9-1.3); Prothrombin Time 28.4 SECONDS (10.1-12.7)
== END ==
PROVIDERS: PCP Internal Medicine; Visit Provider Pharmacist
DX: Z79.01 Long term (current) use of anticoagulants (principal)
CPT/HCPCS: 36415; 85610

== ENCOUNTER → 2018-05-12 10:25 | Outpatient (CLI) | payer MEDICARE, OTHER, SELFPAY ==
[2018-05-12 11:42] LABS: INR 3.5 (0.9-1.3); Prothrombin Time 41.7 SECONDS (10.1-12.7)
== END ==
PROVIDERS: Visit Provider Pharmacist
DX: Z79.01 Long term (current) use of anticoagulants (principal)
CPT/HCPCS: 36415; 85610

== ENCOUNTER → 2018-05-14 10:33 | Outpatient (CLI) | payer MEDICARE, OTHER, SELFPAY ==
[2018-05-14 11:35] LABS: Add Manual Diff / Slide Review NO; Basophils Absolute Auto 100 /uL (0-100); Basophils Percent Auto 0.8 % (0-2); Eosinophils Absolute Auto 300 /uL (0-450); Eosinophils Percent Auto 3.8 % (2-4); Hematocrit 38.3 % (41-53); Hemoglobin 11.9 g/dL (13.5-17.5); Lymphocytes Absolute Auto 2300 /uL (1100-4500); Lymphocytes Percent Auto 26.5 % (25-40); Mean Corpuscular Hemoglobin 22.2 PG (26-34); Mean Corpuscular Volume 71.8 fL (80-100); Monocytes Absolute Auto 900 /uL (0-900); Monocytes Percent Auto 10.8 % (3-14); Neutrophils Absolute Auto 5000 /uL (1500-7000); Neutrophils Percent Auto 58.1 % (50-75); Platelet Count 166 X10^3/uL (150-400); Red Blood Cell Count 5.33 X10^6/uL (4.5-5.9); White Blood Cell Count 8.6 X10^3/uL (4.5-11.0)
[2018-05-14 11:39] LABS: INR 3.2 (0.9-1.3); Prothrombin Time 37.5 SECONDS (10.1-12.7)
[2018-05-14 12:06] LABS: BUN Creatinine Ratio 22.7 (6-22); Blood Urea Nitrogen 25 mg/dL (9-20); Calcium 9.2 mg/dL (8.4-10.2); Carbon Dioxide 31 mmol/L (22-32); Chloride 100 mmol/L (98-107); Estimated Glomerular Filt Rate > 60.0 mL/min (>60); Glucose 105 mg/dL (80-110); HEMOLYSIS < 15 (0-50); Potassium 4.9 mmol/L (3.4-5.1); Sodium 142 mmol/L (137-145)
== END ==
PROVIDERS: Visit Provider Internal Medicine Cardiovascular Disease
DX: I50.22 Chronic systolic (congestive) heart failure (principal); Z95.811 Presence of heart assist device
CPT/HCPCS: 36415; 80048; 83735; 85025; 85610

== ENCOUNTER → 2018-05-20 10:55 | Outpatient (CLI) | payer MEDICARE, OTHER, SELFPAY ==
[2018-05-20 11:57] LABS: INR 2.9 (0.9-1.3); Prothrombin Time 34.2 SECONDS (10.1-12.7)
== END ==
PROVIDERS: Visit Provider Pharmacist
DX: Z79.01 Long term (current) use of anticoagulants (principal)
CPT/HCPCS: 36415; 85610

== ENCOUNTER → 2018-05-27 11:30 | Outpatient (CLI) | payer MEDICARE, OTHER, SELFPAY ==
[2018-05-27 12:10] LABS: Prothrombin Time 35.8 SECONDS (10.1-12.7)
== END ==
PROVIDERS: PCP Internal Medicine; Visit Provider Pharmacist
DX: Z79.01 Long term (current) use of anticoagulants (principal)
CPT/HCPCS: 36415; 85610

== ENCOUNTER → 2018-05-31 10:22 | Outpatient (CLI) | payer MEDICARE, OTHER, SELFPAY ==
[2018-05-31 11:43] LABS: INR 3.2 (0.9-1.3)
== END ==
PROVIDERS: PCP Internal Medicine; Visit Provider Pharmacist
DX: Z79.01 Long term (current) use of anticoagulants (principal)
CPT/HCPCS: 36415; 85610

== ENCOUNTER → 2018-06-04 10:09 | Outpatient (CLI) | payer MEDICARE, OTHER, SELFPAY ==
[2018-06-04 11:17] LABS: INR 2.1 (0.9-1.3); Prothrombin Time 23.9 SECONDS (10.1-12.7)
== END ==
PROVIDERS: PCP Internal Medicine; Visit Provider Pharmacist
DX: Z79.01 Long term (current) use of anticoagulants (principal)
CPT/HCPCS: 36415; 85610

== ENCOUNTER → 2018-06-07 11:00 | Outpatient (CLI) | payer MEDICARE, OTHER, SELFPAY ==
[2018-06-07 12:16] LABS: INR 2.7 (0.9-1.3)
== END ==
PROVIDERS: PCP Internal Medicine; Visit Provider Pharmacist
DX: Z79.01 Long term (current) use of anticoagulants (principal)
CPT/HCPCS: 36415; 85610

== ENCOUNTER → 2018-06-14 10:25 | Outpatient (CLI) | payer MEDICARE, OTHER, SELFPAY ==
[2018-06-14 11:02] LABS: Prothrombin Time 35.1 SECONDS (10.1-12.7)
== END ==
PROVIDERS: PCP Internal Medicine; Visit Provider Pharmacist
DX: Z79.01 Long term (current) use of anticoagulants (principal)
CPT/HCPCS: 36415; 85610

== ENCOUNTER → 2018-06-30 10:45 | Outpatient (CLI) | payer MEDICARE, OTHER, SELFPAY ==
[2018-06-30 12:27] LABS: INR 2.6 (0.9-1.3); Prothrombin Time 30.7 SECONDS (10.1-12.7)
== END ==
PROVIDERS: PCP Internal Medicine; Visit Provider Pharmacist Pharmacist Clinician (PhC)/ Clinical Pharmacy Specialist
DX: Z79.01 Long term (current) use of anticoagulants (principal)
CPT/HCPCS: 36415; 85610

== ENCOUNTER → 2018-07-07 10:24 | Outpatient (CLI) | payer MEDICARE, OTHER, SELFPAY ==
[2018-07-07 10:58] LABS: INR 2.4 (0.9-1.3); Prothrombin Time 28.1 SECONDS (10.1-12.7)
== END ==
PROVIDERS: PCP Internal Medicine; Visit Provider Pharmacist Pharmacist Clinician (PhC)/ Clinical Pharmacy Specialist
DX: Z79.01 Long term (current) use of anticoagulants (principal)
CPT/HCPCS: 36415; 85610

== ENCOUNTER → 2018-07-14 10:20 | Outpatient (CLI) | payer MEDICARE, OTHER, SELFPAY ==
[2018-07-14 11:48] LABS: INR 2.3 (0.9-1.3); Prothrombin Time 26.7 SECONDS (10.1-12.7)
== END ==
PROVIDERS: PCP Internal Medicine; Visit Provider Pharmacist Pharmacist Clinician (PhC)/ Clinical Pharmacy Specialist
DX: Z79.01 Long term (current) use of anticoagulants (principal)
CPT/HCPCS: 36415; 85610

== ENCOUNTER → 2018-07-21 10:34 | Outpatient (CLI) | payer MEDICARE, OTHER, SELFPAY ==
[2018-07-21 11:07] LABS: INR 3.1 (0.9-1.3); Prothrombin Time 36.9 SECONDS (10.1-12.7)
== END ==
PROVIDERS: PCP Internal Medicine; Visit Provider Pharmacist Pharmacist Clinician (PhC)/ Clinical Pharmacy Specialist
DX: Z79.01 Long term (current) use of anticoagulants (principal)
CPT/HCPCS: 36415; 85610

== ENCOUNTER → 2018-07-28 10:24 | Outpatient (CLI) | payer MEDICARE, OTHER, SELFPAY ==
[2018-07-28 12:06] LABS: INR 2.3 (0.9-1.3)
== END ==
PROVIDERS: PCP Internal Medicine; Visit Provider Pharmacist
DX: Z79.01 Long term (current) use of anticoagulants (principal)
CPT/HCPCS: 36415; 85610

== ENCOUNTER → 2018-08-04 11:02 | Outpatient (CLI) | payer MEDICARE, OTHER, SELFPAY ==
[2018-08-04 12:16] LABS: INR 2.5 (0.9-1.3); Prothrombin Time 29.4 SECONDS (10.1-12.7)
== END ==
PROVIDERS: PCP Internal Medicine; Visit Provider Pharmacist Pharmacist Clinician (PhC)/ Clinical Pharmacy Specialist
DX: Z79.01 Long term (current) use of anticoagulants (principal)
CPT/HCPCS: 36415; 85610

== ENCOUNTER → 2018-08-11 10:39 | Outpatient (CLI) | payer MEDICARE, OTHER, SELFPAY ==
[2018-08-11 11:34] LABS: INR 2.8 (0.9-1.3); Prothrombin Time 33.7 SECONDS (10.1-12.7)
== END ==
PROVIDERS: PCP Internal Medicine; Visit Provider Pharmacist Pharmacist Clinician (PhC)/ Clinical Pharmacy Specialist
DX: Z79.01 Long term (current) use of anticoagulants (principal)
CPT/HCPCS: 36415; 85610

== ENCOUNTER → 2018-09-01 10:50 | Outpatient (CLI) | payer MEDICARE, OTHER, SELFPAY ==
[2018-09-01 11:24] LABS: Prothrombin Time 23.4 SECONDS (10.1-12.7)
== END ==
PROVIDERS: Family Provider Internal Medicine; PCP Internal Medicine; Visit Provider Pharmacist Pharmacist Clinician (PhC)/ Clinical Pharmacy Specialist
DX: Z79.01 Long term (current) use of anticoagulants (principal)
CPT/HCPCS: 36415; 85610

== ENCOUNTER → 2018-09-10 10:47 | Outpatient (CLI) | payer MEDICARE, OTHER, SELFPAY ==
[2018-09-10 11:15] LABS: INR 2.7 (0.9-1.3); Prothrombin Time 31.6 SECONDS (10.1-12.7)
== END ==
PROVIDERS: Family Provider Internal Medicine; PCP Internal Medicine; Visit Provider Pharmacist Pharmacist Clinician (PhC)/ Clinical Pharmacy Specialist
DX: Z79.01 Long term (current) use of anticoagulants (principal)
CPT/HCPCS: 36415; 85610

== ENCOUNTER → 2018-09-13 10:37 | Outpatient (CLI) | payer MEDICARE, OTHER, SELFPAY ==
[2018-09-13 11:05] LABS: INR 2.5 (0.9-1.3)
== END ==
PROVIDERS: Family Provider Internal Medicine; PCP Internal Medicine; Visit Provider Pharmacist Pharmacist Clinician (PhC)/ Clinical Pharmacy Specialist
DX: Z79.01 Long term (current) use of anticoagulants (principal)
CPT/HCPCS: 36415; 85610

== ENCOUNTER → 2018-09-20 12:37 | Outpatient (CLI) | payer MEDICARE, OTHER, SELFPAY ==
[2018-09-20 12:59] LABS: INR 2.6 (0.9-1.3); Prothrombin Time 30.8 SECONDS (10.1-12.7)
== END ==
PROVIDERS: Family Provider Internal Medicine; PCP Internal Medicine; Visit Provider Pharmacist Pharmacist Clinician (PhC)/ Clinical Pharmacy Specialist
DX: Z79.01 Long term (current) use of anticoagulants (principal)
CPT/HCPCS: 36415; 85610

== ENCOUNTER → 2018-10-07 10:39 | Outpatient (CLI) | payer MEDICARE, OTHER, SELFPAY ==
[2018-10-07 11:08] LABS: INR 2.7 (0.9-1.3); Prothrombin Time 31.6 SECONDS (10.1-12.7)
== END ==
PROVIDERS: PCP Internal Medicine; Visit Provider Pharmacist Pharmacist Clinician (PhC)/ Clinical Pharmacy Specialist
DX: Z79.01 Long term (current) use of anticoagulants (principal)
CPT/HCPCS: 36415; 85610

== ENCOUNTER → 2018-10-21 10:18 | Outpatient (CLI) | payer MEDICARE, OTHER, SELFPAY ==
[2018-10-21 10:55] LABS: INR 3.2 (0.9-1.3); Prothrombin Time 37.6 SECONDS (10.1-12.7)
== END ==
PROVIDERS: PCP Internal Medicine; Visit Provider Pharmacist Pharmacist Clinician (PhC)/ Clinical Pharmacy Specialist
DX: Z79.01 Long term (current) use of anticoagulants (principal)
CPT/HCPCS: 36415; 85610

== ENCOUNTER → 2018-10-27 11:07 | Outpatient (CLI) | payer MEDICARE, OTHER, SELFPAY ==
[2018-10-27 12:26] LABS: INR 2.6 (0.9-1.3)
== END ==
PROVIDERS: PCP Internal Medicine; Visit Provider Pharmacist Pharmacist Clinician (PhC)/ Clinical Pharmacy Specialist
DX: Z79.01 Long term (current) use of anticoagulants (principal)
CPT/HCPCS: 36415; 85610

== ENCOUNTER → 2018-11-03 10:48 | Outpatient (CLI) | payer MEDICARE, OTHER, SELFPAY ==
[2018-11-03 11:26] LABS: Prothrombin Time 35.2 SECONDS (10.1-12.7)
== END ==
PROVIDERS: PCP Internal Medicine; Visit Provider Pharmacist Pharmacist Clinician (PhC)/ Clinical Pharmacy Specialist
DX: Z79.01 Long term (current) use of anticoagulants (principal)
CPT/HCPCS: 36415; 85610

== ENCOUNTER → 2018-11-10 10:16 | Outpatient (CLI) | payer MEDICARE, OTHER, SELFPAY ==
[2018-11-10 10:55] LABS: Prothrombin Time 35.4 SECONDS (10.1-12.7)
== END ==
PROVIDERS: PCP Internal Medicine; Visit Provider Pharmacist Pharmacist Clinician (PhC)/ Clinical Pharmacy Specialist
DX: Z79.01 Long term (current) use of anticoagulants (principal)
CPT/HCPCS: 36415; 85610

== ENCOUNTER → 2018-11-25 10:31 | Outpatient (CLI) | payer MEDICARE, OTHER, SELFPAY ==
[2018-11-25 11:46] LABS: INR 2.8 (0.9-1.3); Prothrombin Time 32.9 SECONDS (10.1-12.7)
== END ==
PROVIDERS: PCP Internal Medicine; Visit Provider Pharmacist Pharmacist Clinician (PhC)/ Clinical Pharmacy Specialist
DX: Z79.01 Long term (current) use of anticoagulants (principal)
CPT/HCPCS: 36415; 85610

== ENCOUNTER → 2018-12-01 10:19 | Outpatient (CLI) | payer MEDICARE, OTHER, SELFPAY ==
[2018-12-01 11:09] LABS: INR 2.9 (0.9-1.3); Prothrombin Time 34.1 SECONDS (10.1-12.7)
== END ==
PROVIDERS: PCP Internal Medicine; Visit Provider Pharmacist Pharmacist Clinician (PhC)/ Clinical Pharmacy Specialist
DX: Z79.01 Long term (current) use of anticoagulants (principal)
CPT/HCPCS: 36415; 85610

== ENCOUNTER → 2018-12-09 10:07 | Outpatient (CLI) | payer MEDICARE, OTHER, SELFPAY ==
[2018-12-09 10:46] LABS: INR 2.6 (0.9-1.3); Prothrombin Time 30.2 SECONDS (10.1-12.7)
== END ==
PROVIDERS: PCP Internal Medicine; Visit Provider Pharmacist Pharmacist Clinician (PhC)/ Clinical Pharmacy Specialist
DX: Z79.01 Long term (current) use of anticoagulants (principal)
CPT/HCPCS: 36415; 85610

== ENCOUNTER → 2019-01-11 10:32 | Outpatient (CLI) | payer MEDICARE, OTHER, SELFPAY ==
[2019-01-11 11:07] LABS: INR 2.9 (0.9-1.3); Prothrombin Time 34.6 SECONDS (10.1-12.7)
== END ==
PROVIDERS: PCP Internal Medicine; Visit Provider Pharmacist Pharmacist Clinician (PhC)/ Clinical Pharmacy Specialist
DX: Z79.01 Long term (current) use of anticoagulants (principal)
CPT/HCPCS: 36415; 85610

== ENCOUNTER → 2019-01-19 10:57 | Outpatient (CLI) | payer MEDICARE, OTHER, SELFPAY ==
[2019-01-19 11:31] LABS: INR 2.9 (0.9-1.3); Prothrombin Time 34.6 SECONDS (10.1-12.7)
== END ==
PROVIDERS: Family Provider Internal Medicine; PCP Internal Medicine; Visit Provider Pharmacist Pharmacist Clinician (PhC)/ Clinical Pharmacy Specialist
DX: Z79.01 Long term (current) use of anticoagulants (principal)
CPT/HCPCS: 36415; 85610

== ENCOUNTER → 2019-01-26 10:46 | Outpatient (CLI) | payer MEDICARE, OTHER, SELFPAY ==
[2019-01-26 11:14] LABS: INR 3.1 (0.9-1.3)
== END ==
PROVIDERS: PCP Internal Medicine; Visit Provider Pharmacist Pharmacist Clinician (PhC)/ Clinical Pharmacy Specialist
DX: Z79.01 Long term (current) use of anticoagulants (principal)
CPT/HCPCS: 36415; 85610

== ENCOUNTER → 2019-01-31 10:44 | Outpatient (CLI) | payer MEDICARE, OTHER, SELFPAY ==
[2019-01-31 11:56] LABS: INR 2.7 (0.9-1.3); Prothrombin Time 31.7 SECONDS (10.1-12.7)
== END ==
PROVIDERS: PCP Internal Medicine; Visit Provider Pharmacist Pharmacist Clinician (PhC)/ Clinical Pharmacy Specialist
DX: Z79.01 Long term (current) use of anticoagulants (principal)
CPT/HCPCS: 36415; 85610

== ENCOUNTER → 2019-03-09 10:41 | Outpatient (CLI) | payer MEDICARE, OTHER, SELFPAY ==
[2019-03-09 11:04] LABS: INR 2.7 (0.9-1.3); Prothrombin Time 31.3 SECONDS (10.1-12.7)
== END ==
PROVIDERS: PCP Internal Medicine; Visit Provider Pharmacist Pharmacist Clinician (PhC)/ Clinical Pharmacy Specialist
DX: Z79.01 Long term (current) use of anticoagulants (principal)
CPT/HCPCS: 36415; 85610

== ENCOUNTER → 2019-03-16 10:22 | Outpatient (CLI) | payer MEDICARE, OTHER, SELFPAY ==
[2019-03-16 10:56] LABS: INR 3.1 (0.9-1.3); Prothrombin Time 35.5 SECONDS (10.1-12.7)
== END ==
PROVIDERS: PCP Internal Medicine; Referring Provider Pharmacist Pharmacist Clinician (PhC)/ Clinical Pharmacy Specialist; Visit Provider Pharmacist Pharmacist Clinician (PhC)/ Clinical Pharmacy Specialist
DX: Z79.01 Long term (current) use of anticoagulants (principal)
CPT/HCPCS: 36415; 85610

== ENCOUNTER → 2019-03-23 10:10 | Outpatient (CLI) | payer MEDICARE, OTHER, SELFPAY ==
[2019-03-23 11:10] LABS: INR 2.9 (0.9-1.3); Prothrombin Time 33.3 SECONDS (10.1-12.7)
== END ==
PROVIDERS: PCP Internal Medicine; Referring Provider Pharmacist Pharmacist Clinician (PhC)/ Clinical Pharmacy Specialist; Visit Provider Pharmacist Pharmacist Clinician (PhC)/ Clinical Pharmacy Specialist
DX: Z79.01 Long term (current) use of anticoagulants (principal)
CPT/HCPCS: 36415; 85610

== ENCOUNTER → 2019-03-30 10:07 | Outpatient (CLI) | payer MEDICARE, OTHER, SELFPAY ==
[2019-03-30 11:04] LABS: INR 2.4 (0.9-1.3); Prothrombin Time 27.8 SECONDS (10.1-12.7)
== END ==
PROVIDERS: PCP Internal Medicine; Referring Provider Pharmacist Pharmacist Clinician (PhC)/ Clinical Pharmacy Specialist; Visit Provider Pharmacist Pharmacist Clinician (PhC)/ Clinical Pharmacy Specialist
DX: Z79.01 Long term (current) use of anticoagulants (principal)
CPT/HCPCS: 36415; 85610

== ENCOUNTER → 2019-04-13 10:31 | Outpatient (CLI) | payer MEDICARE, OTHER, SELFPAY ==
[2019-04-13 11:38] LABS: INR 2.4 (0.9-1.3); Prothrombin Time 27.6 SECONDS (10.1-12.7)
== END ==
PROVIDERS: PCP Internal Medicine; Referring Provider Pharmacist Pharmacist Clinician (PhC)/ Clinical Pharmacy Specialist; Visit Provider Pharmacist Pharmacist Clinician (PhC)/ Clinical Pharmacy Specialist
DX: Z79.01 Long term (current) use of anticoagulants (principal)
CPT/HCPCS: 36415; 85610

== ENCOUNTER → 2019-04-18 10:23 | Outpatient (CLI) | payer MEDICARE, OTHER, SELFPAY ==
[2019-04-18 10:56] LABS: INR 3.6 (0.9-1.3); Prothrombin Time 41.5 SECONDS (10.1-12.7)
== END ==
PROVIDERS: PCP Internal Medicine; Referring Provider Pharmacist Pharmacist Clinician (PhC)/ Clinical Pharmacy Specialist; Visit Provider Pharmacist Pharmacist Clinician (PhC)/ Clinical Pharmacy Specialist
DX: Z79.01 Long term (current) use of anticoagulants (principal)
CPT/HCPCS: 36415; 85610

== ENCOUNTER → 2019-04-21 10:21 | Outpatient (CLI) | payer MEDICARE, OTHER, SELFPAY ==
[2019-04-21 10:47] LABS: INR 3.1 (0.9-1.3); Prothrombin Time 35.1 SECONDS (10.1-12.7)
== END ==
PROVIDERS: PCP Internal Medicine; Referring Provider Pharmacist Pharmacist Clinician (PhC)/ Clinical Pharmacy Specialist; Visit Provider Pharmacist Pharmacist Clinician (PhC)/ Clinical Pharmacy Specialist
DX: Z79.01 Long term (current) use of anticoagulants (principal)
CPT/HCPCS: 36415; 85610

== ENCOUNTER → 2019-04-26 10:50 | Outpatient (CLI) | payer MEDICARE, OTHER, SELFPAY ==
[2019-04-26 11:27] LABS: INR 3.2 (0.9-1.3); Prothrombin Time 35.9 SECONDS (10.1-12.7)
== END ==
PROVIDERS: PCP Internal Medicine; Referring Provider Pharmacist Pharmacist Clinician (PhC)/ Clinical Pharmacy Specialist; Visit Provider Pharmacist Pharmacist Clinician (PhC)/ Clinical Pharmacy Specialist
DX: Z79.01 Long term (current) use of anticoagulants (principal)
CPT/HCPCS: 36415; 85610

== ENCOUNTER → 2019-05-03 10:39 | Outpatient (CLI) | payer MEDICARE, OTHER, SELFPAY ==
[2019-05-03 11:09] LABS: INR 3.3 (0.9-1.3)
== END ==
PROVIDERS: PCP Internal Medicine; Referring Provider Pharmacist Pharmacist Clinician (PhC)/ Clinical Pharmacy Specialist; Visit Provider Pharmacist Pharmacist Clinician (PhC)/ Clinical Pharmacy Specialist
DX: Z79.01 Long term (current) use of anticoagulants (principal)
CPT/HCPCS: 36415; 85610

== ENCOUNTER → 2019-05-10 10:34 | Outpatient (CLI) | payer MEDICARE, OTHER, SELFPAY ==
[2019-05-10 11:16] LABS: INR 3.1 (0.9-1.3); Prothrombin Time 34.7 SECONDS (10.1-12.7)
== END ==
PROVIDERS: PCP Internal Medicine; Referring Provider Pharmacist Pharmacist Clinician (PhC)/ Clinical Pharmacy Specialist; Visit Provider Pharmacist Pharmacist Clinician (PhC)/ Clinical Pharmacy Specialist
DX: Z79.01 Long term (current) use of anticoagulants (principal)
CPT/HCPCS: 36415; 85610

== ENCOUNTER → 2019-05-17 10:37 | Outpatient (CLI) | payer MEDICARE, OTHER, SELFPAY ==
[2019-05-17 11:02] LABS: INR 2.9 (0.9-1.3)
== END ==
PROVIDERS: PCP Internal Medicine; Referring Provider Pharmacist Pharmacist Clinician (PhC)/ Clinical Pharmacy Specialist; Visit Provider Pharmacist Pharmacist Clinician (PhC)/ Clinical Pharmacy Specialist
DX: Z79.01 Long term (current) use of anticoagulants (principal)
CPT/HCPCS: 36415; 85610

== ENCOUNTER → 2019-05-24 10:39 | Outpatient (CLI) | payer MEDICARE, OTHER, SELFPAY ==
[2019-05-24 11:22] LABS: INR 3.1 (0.9-1.3); Prothrombin Time 35.3 SECONDS (10.1-12.7)
== END ==
PROVIDERS: PCP Internal Medicine; Referring Provider Pharmacist Pharmacist Clinician (PhC)/ Clinical Pharmacy Specialist; Visit Provider Pharmacist Pharmacist Clinician (PhC)/ Clinical Pharmacy Specialist
DX: Z79.01 Long term (current) use of anticoagulants (principal)
CPT/HCPCS: 36415; 85610

== ENCOUNTER → 2019-05-31 10:50 | Outpatient (CLI) | payer MEDICARE, OTHER, SELFPAY ==
[2019-05-31 11:22] LABS: INR 2.6 (0.9-1.3); Prothrombin Time 29.4 SECONDS (10.1-12.7)
== END ==
PROVIDERS: PCP Internal Medicine; Referring Provider Internal Medicine; Visit Provider Pharmacist Pharmacist Clinician (PhC)/ Clinical Pharmacy Specialist
DX: Z79.01 Long term (current) use of anticoagulants (principal)
CPT/HCPCS: 36415; 85610

== ENCOUNTER → 2019-06-07 10:37 | Outpatient (CLI) | payer MEDICARE, OTHER, SELFPAY ==
[2019-06-07 11:00] LABS: INR 2.5 (0.9-1.3); Prothrombin Time 28.6 SECONDS (10.1-12.7)
== END ==
PROVIDERS: PCP Internal Medicine; Referring Provider Pharmacist Pharmacist Clinician (PhC)/ Clinical Pharmacy Specialist; Visit Provider Pharmacist Pharmacist Clinician (PhC)/ Clinical Pharmacy Specialist
DX: Z79.01 Long term (current) use of anticoagulants (principal)
CPT/HCPCS: 36415; 85610

== ENCOUNTER → 2019-06-10 10:32 | Outpatient (CLI) | payer MEDICARE, OTHER, SELFPAY ==
[2019-06-10 11:25] LABS: Hematocrit 45.4 % (41-53); Hemoglobin 15.3 g/dL (13.5-17.5); Mean Corpuscular HGB Conc 33.8 % (30-36); Mean Corpuscular Volume 88.9 fL (80-100); Platelet Count 179 X10^3/uL (150-400); Red Blood Cell Count 5.11 X10^6/uL (4.5-5.9); Red Cell Distribution Width 14.8 % (11.6-14.8); White Blood Cell Count 10.2 X10^3/uL (4.5-11.0)
[2019-06-10 11:28] LABS: INR 2.9 (0.9-1.3)
[2019-06-10 12:03] LABS: Alanine Aminotransferase 17 IU/L (<50); Albumin 4.1 g/dL (3.5-5.0); Albumin Globulin Ratio 1.3 (1.0-2.8); Alkaline Phosphatase 79 U/L (38-126); Aspartate Aminotransferase 25 IU/L (17-59); BUN Creatinine Ratio 22.6 (6-22); Bilirubin Total 0.4 mg/dL (0.2-1.3); Blood Urea Nitrogen 26 mg/dL (9-20); Calcium 9.6 mg/dL (8.4-10.2); Carbon Dioxide 33 mmol/L (22-32); Chloride 104 mmol/L (98-107); Estimated Glomerular Filt Rate > 60.0 mL/min (>60); Globulin 3.1 g/dL (1.7-4.1); Glucose 101 mg/dL (80-110); HEMOLYSIS < 15 (0-50); Lactate Dehydrogenase 502 U/L (313-618); Magnesium 2.3 mg/dL (1.6-2.3); Sodium 143 mmol/L (137-145); Total Protein 7.2 g/dL (6.3-8.2)
[2019-06-10 12:11] LABS: NT-proBNP (BNP-Adult 18+) 6690 pg/mL (<450)
[2019-06-10 15:00] LABS: Potassium 6.6 mmol/L (3.4-5.1)
[2019-06-11 05:00] LABS: Haptoglobin 154 mg/dL (34-355)
== END ==
PROVIDERS: PCP Internal Medicine; Referring Provider Internal Medicine Advanced Heart Failure and Transplant Cardiology; Visit Provider Pharmacist Pharmacist Clinician (PhC)/ Clinical Pharmacy Specialist
DX: I25.5 Ischemic cardiomyopathy (principal); Z79.01 Long term (current) use of anticoagulants; Z95.811 Presence of heart assist device
CPT/HCPCS: 36415; 80053; 83010; 83615; 83735; 83880; 84550; 85027; 85610

== ENCOUNTER 2019-06-10 15:42 | Emergency (ER) | payer MEDICARE, OTHER, SELFPAY ==
[2019-06-10] VITALS (8 sets, daily range): BP systolic 82–104; BP diastolic 0; PULSE 61–82; RESP 16–22; TEMP 36.6; O2SAT 95–97; BMI 25.3
[2019-06-10 16:48] LABS: Add Manual Diff / Slide Review NO; Basophils Absolute Auto 100 /uL (0-100); Basophils Percent Auto 0.8 % (0-2); Eosinophils Absolute Auto 300 /uL (0-450); Eosinophils Percent Auto 2.9 % (2-4); Hematocrit 44.6 % (41-53); Hemoglobin 14.8 g/dL (13.5-17.5); Lymphocytes Absolute Auto 2400 /uL (1100-4500); Lymphocytes Percent Auto 22.9 % (25-40); Mean Corpuscular HGB Conc 33.2 % (30-36); Mean Corpuscular Hemoglobin 29.4 PG (26-34); Mean Corpuscular Volume 88.6 fL (80-100); Monocytes Absolute Auto 900 /uL (0-900); Monocytes Percent Auto 8.6 % (3-14); Neutrophils Absolute Auto 6800 /uL (1500-7000); Neutrophils Percent Auto 64.8 % (50-75); Platelet Count 179 X10^3/uL (150-400); Red Blood Cell Count 5.03 X10^6/uL (4.5-5.9); Red Cell Distribution Width 14.9 % (11.6-14.8); White Blood Cell Count 10.5 X10^3/uL (4.5-11.0)
--- NOTE | 2019-06-10 16:49 | ED_ITS ---
HPI - Recheck/Abnormal Lab/Rx <Tsering Kleber Nelson, DO - Last Filed: 06/12/19 10:09> General Chief Complaint: Recheck/Abnormal Lab/Rx Stated Complaint: LABS WORK WAS NOT NORMAL Time Seen by Provider: 06/10/19 15:53 Source: patient Mode of arrival: Ambulatory Limitations: no limitations History of Present Illness HPI narrative: This is a 78-year-old male comes to the emergency department for lab abnormalities. Patient has an LVAD as well as an ICD. Patient's potassium was elevated on outpatient labs. Patient has not had any symptoms. He has an appointment via phone and had his labs drawn in anticipation of his appointment this coming week. He has not had any chest pain, no shortness of breath, no swelling in his extremities. He denies any other symptoms. His map today is 104 which he states is elevated. He is on his INR is appropriate at 2.9 and this was verified with his LVAD coordinator. He has not had any other new medication changes. Related Data Home Medications Medication Instructions Recorded Confirmed atorvastatin [Lipitor] 10 mg PO DAILY #0 05/11/16 01/19/18 lorazepam 0.5 - 1 mg PO Q8H PRN #0 05/11/16 01/19/18 acetaminophen [Tylenol] 650 mg PO PRN PRN 01/19/18 01/19/18 albuterol sulfate 2.5 mg INHALATION Q6-8H PRN 01/19/18 01/19/18 albuterol sulfate 3 ml INHALATION PRN PRN 01/19/18 01/19/18 albuterol sulfate [ProAir HFA] 2 puff INHALATION Q4H PRN 01/19/18 01/19/18 amiodarone 200 mg PO DAILY 01/19/18 01/19/18 aspirin 324 mg PO DAILY 01/19/18 01/19/18 docusate sodium 100 mg PO PRN PRN 01/19/18 01/19/18 fluticasone propion-salmeterol 1 puff INHALATION BID 01/19/18 01/19/18 [Advair Diskus] glipizide 5 mg PO DAILY 01/19/18 01/19/18 loratadine 10 mg PO DAILY PRN 01/19/18 01/19/18 magnesium hydroxide 400 mg PO BID 01/19/18 01/19/18 metoprolol succinate 12.5 mg PO BID 01/19/18 01/19/18 multivitamin 1 tab PO DAILY 01/19/18 01/19/18 pantoprazole 40 mg PO DAILY 01/19/18 01/19/18 polyethylene glycol 3350 17 g PO DAILY 01/19/18 01/19/18 prednisone 10 mg PO DAILY PRN 01/19/18 01/19/18 sennosides [senna] 17.2 mg PO BEDTIME PRN 01/19/18 01/19/18 sodium chloride 2 spray INTRANASAL Q2H PRN 01/19/18 01/19/18 tiotropium bromide [Spiriva with 1 cap INHALATION QAM 01/19/18 01/19/18 HandiHaler] torsemide 10 mg PO DAILY 01/19/18 01/19/18 triazolam 0.125 mg PO BEDTIME PRN 01/19/18 01/19/18 warfarin 4 mg PO SUMOWETHFRSA 01/19/18 01/19/18 warfarin 5 mg PO TU 01/19/18 01/19/18 Allergies Allergy/AdvReac Type Severity Reaction Status Date / Time metformin Allergy Intermediate SOB Verified 06/10/19 15:57 azithromycin [AZITHROMYCIN] Allergy Unknown Verified 06/10/19 15:57 lovastatin [LOVASTATIN] Allergy Unknown NECK PAIN Verified 06/10/19 15:57 oxycodone [From PERCOCET] Allergy Unknown RASH Verified 06/10/19 15:57 Penicillins Allergy Unknown Verified 06/10/19 15:57 pravastatin [PRAVASTATIN] Allergy Unknown Verified 06/10/19 15:57 Sulfa (Sulfonamide Allergy Unknown Verified 06/10/19 15:57 Antibiotics) levofloxacin [From LEVAQUIN] AdvReac Unknown BURSITIS Verified 06/10/19 15:57 Review of Systems <Tsering Nelson DO - Last Filed: 06/12/19 10:09> Review of Systems ROS Unobtainable: All systems reviewed & are unremarkable except as noted in HPI and below Patient History <Tsering Nelson DO - Last Filed: 06/12/19 10:09> Medical History (Updated 06/10/19 @ 19:13 by Tsering Nelson DO) CHF (congestive heart failure) (Chronic) COPD (chronic obstructive pulmonary disease) (Chronic) LVAD (left ventricular assist device) present (Chronic) Surgical History (Updated 06/10/19 @ 16:53 by Tsering Nelson DO) AICD (automatic cardioverter/defibrillator) present (Acute) Social History marital status: Smoking Status: Current some day smoker Smoking Status: Current some day smoker tobacco type: cigarettes Substance Use Type: marijuana Exam <Tsering Nelson DO - Last Filed: 06/12/19 10:09> Narrative Exam Narrative: GENERAL: Alert and oriented x three, well-nourished elderly male in no acute distress. HEENT: Head normocephalic, atraumatic, EOMI, pupils reactive, face symmetric, moist mucous membranes NECK: Supple, full range of motion CARDIOVASCULAR: MAP was 104 with doppler. No edema bilateral lower extremities. RESPIRATORY: Breath sounds equal bilaterally, no wheezes rales or rhonchi. ABDOMEN: Soft, nontender. Normoactive bowel sounds all 4 quadrants. No guarding or rebound, rigidity, no mass : No CVA tenderness EXTREMITIES: Normal range of motion, no clubbing or edema. Neurovascularly intact. Normal gait. NEUROLOGICAL: Cranial nerves II through XII grossly intact. Moving all extremities SKIN: Warm, dry, no petechiae, no rashes or lesions. Initial Vital Signs Initial Vital Signs: Vital Signs Temperature 97.8 F 06/10/19 15:57 Pulse Rate 61 06/10/19 15:57 Respiratory Rate 22 06/10/19 15:57 Pulse Oximetry 97 06/10/19 15:57 <Doni Molina DO - Last Filed: 06/10/19 22:35> Initial Vital Signs Initial Vital Signs: Vital Signs Temperature 97.8 F 06/10/19 15:57 Pulse Rate 61 06/10/19 15:57 Respiratory Rate 22 06/10/19 15:57 Pulse Oximetry 97 06/10/19 15:57 Course <Tsering Nelson DO - Last Filed: 06/12/19 10:09> Orders Ordered: Discontinued Medications Carvedilol (Coreg) 12.5 mg PO NOW ONE Stop: 06/10/19 20:27 Last Admin: 06/10/19 20:36 Dose: 12.5 mg Documented by: [email or web address] Hydralazine HCl (Apresoline) 10 mg PO NOW ONE Stop: 06/10/19 18:16 Last Admin: 06/10/19 19:02 Dose: 10 mg Documented by: LETITIA Hydralazine HCl (Apresoline) 25 mg PO NOW ONE Stop: 06/10/19 21:48 Last Admin: 06/10/19 22:11 Dose: 25 mg Documented by: MISBAH Metoprolol Succinate (Toprol Xl) 12.5 mg PO NOW ONE Stop: 06/10/19 20:22 Vital Signs Vital signs: Vital Signs - 8 hr 06/10/19 15:57 06/10/19 16:20 06/10/19 17:35 Temperature 97.8 F Pulse Rate 61 82 78 Respiratory Rate 22 16 16 Blood Pressure Blood Pressure [Left Arm] 104/0 L 86/0 L Pulse Oximetry 97 96 95 06/10/19 18:23 06/10/19 19:45 06/10/19 20:07 Temperature Pulse Rate 79 81 78 Respiratory Rate 22 16 16 Blood Pressure 86/0 L Blood Pressure [Left Arm] 88/0 L 86/0 L 82/0 L Pulse Oximetry 96 96 96 06/10/19 20:36 06/10/19 21:21 Temperature Pulse Rate 78 80 Respiratory Rate 20 Blood Pressure 82/0 L Blood Pressure [Left Arm] 97/0 L Pulse Oximetry 97 <Doni Molina DO - Last Filed: 06/10/19 22:35> Orders Ordered: Discontinued Medications Carvedilol (Coreg) 12.5 mg PO NOW ONE Stop: 06/10/19 20:27 Last Admin: 06/10/19 20:36 Dose: 12.5 mg Documented by: LETITIA Hydralazine HCl (Apresoline) 10 mg PO NOW ONE Stop: 06/10/19 18:16 Last Admin: 06/10/19 19:02 Dose: 10 mg Documented by: LETITIA Hydralazine HCl (Apresoline) 25 mg PO NOW ONE Stop: 06/10/19 21:48 Last Admin: 06/10/19 22:11 Dose: 25 mg Documented by: MISBAH Metoprolol Succinate (Toprol Xl) 12.5 mg PO NOW ONE Stop: 06/10/19 20:22 Vital Signs Vital signs: Vital Signs - 8 hr 06/10/19 15:57 06/10/19 16:20 06/10/19 17:35 Temperature 97.8 F Pulse Rate 61 82 78 Respiratory Rate 22 16 16 Blood Pressure Blood Pressure [Left Arm] 104/0 L 86/0 L Pulse Oximetry 97 96 95 06/10/19 18:23 06/10/19 19:45 06/10/19 20:07 Temperature Pulse Rate 79 81 78 Respiratory Rate 22 16 16 Blood Pressure 86/0 L Blood Pressure [Left Arm] 88/0 L 86/0 L 82/0 L Pulse Oximetry 96 96 96 06/10/19 20:36 06/10/19 21:21 Temperature Pulse Rate 78 80 Respiratory Rate 20 Blood Pressure 82/0 L Blood Pressure [Left Arm] 97/0 L Pulse Oximetry 97 MDM - Recheck/Abnormal Lab/Rx <Tsering Nelson DO - Last Filed: 06/12/19 10:09> Lab Data Attestation: I reviewed the patient's lab results. Result diagrams: 06/10/19 16:41 06/10/19 16:41 Labs: Lab Results 06/10/19 06/10/19 06/10/19 Range/Units 16:41 16:41 16:41 WBC 10.5 (4.5-11.0) X10^3/uL RBC 5.03 (4.5-5.9) X10^6/uL Hgb 14.8 (13.5-17.5) g/dL Hct 44.6 (41-53) % MCV 88.6 (80-100) fL MCH 29.4 (26-34) PG MCHC 33.2 (30-36) % RDW 14.9 H (11.6-14.8) % Plt Count 179 (150-400) X10^3/uL Neut % (Auto) 64.8 (50-75) % Lymph % (Auto) 22.9 L (25-40) % [place] % (Auto) 8.6 (3-14) % Eos % (Auto) 2.9 (2-4) % Baso % (Auto) 0.8 (0-2) % Neut # (Auto) 6800 (2272-2297) /uL Lymph # (Auto) 2400 (9354-3111) /uL [place] # (Auto) 900 (0-900) /uL Eos # (Auto) 300 (0-450) /uL Baso # (Auto) 100 (0-100) /uL Sodium 139 (137-145) mmol/L Potassium 4.8 D (3.4-5.1) mmol/L Chloride 101 (98-107) mmol/L Carbon Dioxide 31 (22-32) mmol/L BUN 28 H (9-20) mg/dL Creatinine 1.04 (0.66-1.25) mg/dL Estimated GFR > 60.0 (>60) mL/min BUN/Creatinine Ratio 26.9 H (6-22) Glucose 127 H (80-110) mg/dL Calcium 8.8 (8.4-10.2) mg/dL Phosphorus 3.2 (2.3-3.7) mg/dL Magnesium 2.2 (1.6-2.3) mg/dL ECG Data Attestation: I personally reviewed and interpreted this ECG as follows: Prior ECG tracings: available for review Interpretation: Patient has prior EKG that appears similar with today's normal sinus rhythm, rate 81, AR 142 and QRS of 120 with a QTC of 45. Patient has left axis deviation. Patient has inverted T-wave in 1 and aVL, and ST segment changes similar to prior EKG from 2018. [facility] Narrative Medical decision making narrative: Patient politely refuses an IV. Labs were re-drawn and show no abnormalities. Patient's repeat labs show normal CBC with no acute changes, shows potassium of 4.8 with BUN of 28 and otherwise normal electrolytes and renal function. Patient MAP was elevated and rechecked three times in the range of 90-100. Discussed with LVAD coordinator, Sasha. She states typically they will give 25 mg of hydralazine but as patient's recheck was in the mid 80s would probably do about a half dose. If he is still elevated above 80. Goal is 60-80 map. Patient signed out to Dr. Molina while awaiting BP recheck, goal 60-80mg, if continues to be elevated. Given LVAD coordinator number to discuss next steps for BP control if not between 60-80. Patient given hydralazine 10mg and waiting for BP recheck. Dr. Molina given contact information for LVAD coordinator patient continues to be asymptomatic. <Doni Mloina, DO - Last Filed: 06/10/19 22:35> Lab Data Labs: Lab Results 06/10/19 06/10/19 06/10/19 Range/Units 16:41 16:41 16:41 WBC 10.5 (4.5-11.0) X10^3/uL RBC 5.03 (4.5-5.9) X10^6/uL Hgb 14.8 (13.5-17.5) g/dL Hct 44.6 (41-53) % MCV 88.6 (80-100) fL MCH 29.4 (26-34) PG MCHC 33.2 (30-36) % RDW 14.9 H (11.6-14.8) % Plt Count 179 (150-400) X10^3/uL Neut % (Auto) 64.8 (50-75) % Lymph % (Auto) 22.9 L (25-40) % [place] % (Auto) 8.6 (3-14) % Eos % (Auto) 2.9 (2-4) % Baso % (Auto) 0.8 (0-2) % Neut # (Auto) 6800 (1420-2009) /uL Lymph # (Auto) 2400 (1213-7235) /uL [place] # (Auto) 900 (0-900) /uL Eos # (Auto) 300 (0-450) /uL Baso # (Auto) 100 (0-100) /uL Sodium 139 (137-145) mmol/L Potassium 4.8 D (3.4-5.1) mmol/L Chloride 101 (98-107) mmol/L Carbon Dioxide 31 (22-32) mmol/L BUN 28 H (9-20) mg/dL Creatinine 1.04 (0.66-1.25) mg/dL Estimated GFR > 60.0 (>60) mL/min BUN/Creatinine Ratio 26.9 H (6-22) Glucose 127 H (80-110) mg/dL Calcium 8.8 (8.4-10.2) mg/dL Phosphorus 3.2 (2.3-3.7) mg/dL Magnesium 2.2 (1.6-2.3) mg/dL MDM Narrative Medical decision making narrative: Dr Molina: Received turned over from Dr nelson. Patient remaining in the emergency department in order for his blood pressure to be between 60 and 80 which is what his LVAD coordinator states that his LVAD is designed to be. His blood pressure has been in the 90s to 100s. He was given hydralazine which improved his blood pressure slightly to 82. After discussion with the LVAD coordinator decision was to give him his night dose of Coreg. After he was given this his blood pressure increased again into the 90s. We had further discussions incision was made to give him another dose of hydralazine this time higher dose. This was given. The decision was made that if his blood pressure was less than 90 that he could be discharged home in the LVAD coordinator would contact him tomorrow. Before we could recheck his blood pressure the patient decided that he wanted to leave. Nursing staff had discu ssion with him regarding risks and benefits to include . I was in another room dealing with another patient at the time and could not talk with him. According to nursing staff patient expressed understanding. He is alert oriented x3 at the time of my evaluation. I did feel that he had the capacity to make decisions. His was at bedside for all these discussions. I did let the LVAD coordinator know and they will contact him tomorrow. Discharge Plan Departure Patient Disposition: Left Against Medical Advice Clinical Impression: No problem, feared complaint unfounded, Hypertension Discharge Date/Time: 06/10/19 22:20 Activity Restrictions/Additional Instructions: Follow up with your [facility] LVAD team at your phone visit this coming week. Your labs were repeated and your potassium is in normal range. All of your labs including prior from this mornig were discussed with your LVAD team. Continue home medications as prescribed. Return to ER for any new or concerning symptoms. Prescriptions: No Action atorvastatin [Lipitor] 10 MG tablet 10 mg PO DAILY Qty: 0 RF: 0 lorazepam 1 MG tablet 0.5 - 1 mg PO Q8H PRN (Reason: Anxiety) Qty: 0 RF: 0 fluticasone propion-salmeterol [Advair Diskus] 500-50 mcg/dose Blister With Device 1 puff Inhalation BID RF: 0 metoprolol succinate 25 mg Tablet Extended Release 24 Hr 12.5 mg PO BID RF: 0 multivitamin Tablet 1 tab PO DAILY RF: 0 albuterol sulfate 0.63 mg/3 mL Solution For Nebulization 3 ml Inhalation PRN PRN (Reason: Shortness Of Breath) RF: 0 albuterol sulfate 2.5 mg /3 mL (0.083 %) Solution For Nebulization 2.5 mg INHALATION Q6-8H PRN (Reason: Shortness Of Breath) RF: 0 amiodarone 200 mg Tablet 200 mg PO DAILY RF: 0 docusate sodium 100 mg Capsule 100 mg PO PRN PRN (Reason: Constipation) RF: 0 aspirin 81 mg Tablet,Chewable 324 mg PO DAILY RF: 0 loratadine 10 mg Tablet 10 mg PO DAILY PRN (Reason: Allergy Symptoms) RF: 0 glipizide 5 mg Tablet 5 mg PO DAILY RF: 0 magnesium hydroxide 400 mg (170 mg) Tablet,Chewable 400 mg PO BID RF: 0 sennosides [senna] 8.6 mg Tablet 17.2 mg PO BEDTIME PRN (Reason: Constipation) RF: 0 acetaminophen [Tylenol] 325 mg Tablet 650 mg PO PRN PRN (Reason: pain) RF: 0 prednisone 10 mg Tablet 10 mg PO DAILY PRN (Reason: unknown) RF: 0 torsemide 20 mg Tablet 10 mg PO DAILY RF: 0 polyethylene glycol 3350 17 gram Powder In Packet 17 g PO DAILY RF: 0 triazolam 0.125 mg Tablet 0.125 mg PO BEDTIME PRN (Reason: Sleep) RF: 0 pantoprazole 40 mg Tablet,Delayed Release (Dr/Ec) 40 mg PO DAILY RF: 0 warfarin 2 mg Tablet 5 mg PO RF: 0 warfarin 2 mg Tablet 4 mg PO WE RF: 0 albuterol sulfate [ProAir HFA] 90 mcg/actuation HFA aerosol inhaler 2 puff Inhalation Q4H PRN (Reason: Shortness Of Breath) RF: 0 sodium chloride 0.65 % Aerosol,[place] 2 spray INTRANASAL Q2H PRN (Reason: Congestion) RF: 0 tiotropium bromide [Spiriva with HandiHaler] 18 mcg capsule, w/inhalation device 1 cap Inhalation QAM RF: 0 Referrals: Rohan Batres MD [Primary Care Provider] - Stand Alone Forms: Against Medical Advice
[2019-06-10 17:10] LABS: BUN Creatinine Ratio 26.9 (6-22); Blood Urea Nitrogen 28 mg/dL (9-20); Calcium 8.8 mg/dL (8.4-10.2); Carbon Dioxide 31 mmol/L (22-32); Chloride 101 mmol/L (98-107); Estimated Glomerular Filt Rate > 60.0 mL/min (>60); Glucose 127 mg/dL (80-110); HEMOLYSIS < 15 (0-50); Magnesium 2.2 mg/dL (1.6-2.3); Phosphorous 3.2 mg/dL (2.3-3.7); Potassium 4.8 mmol/L (3.4-5.1); Sodium 139 mmol/L (137-145)
[2019-06-10] MEDS: HYDRALAZINE 10 MG TABLET PO (19:02)
[2019-06-10] MEDS: carvediloL 12.5 MG TABLET PO (20:36)
[2019-06-10] MEDS: HYDRALAZINE 25 MG TABLET PO (22:11)
== END 2019-06-10 22:20 | disposition left against medical advice (07) ==
PROVIDERS: Emergency Medicine; Emergency Provider Emergency Medicine; PCP Internal Medicine
DX: I10 Essential (primary) hypertension (principal); I25.5 Ischemic cardiomyopathy; Z79.01 Long term (current) use of anticoagulants; Z95.811 Presence of heart assist device
CPT/HCPCS: 36415; 80048; 80053; 83010; 83051; 83615; 83735; 83880; 84100; 84550; 85025; 85027; 85610; 93005; 99284

== ENCOUNTER → 2019-06-13 10:27 | Outpatient (CLI) | payer MEDICARE, OTHER, SELFPAY ==
[2019-06-13 10:53] LABS: INR 2.8 (0.9-1.3); Prothrombin Time 32.6 SECONDS (10.1-12.7)
== END ==
PROVIDERS: PCP Internal Medicine; Referring Provider Internal Medicine; Visit Provider Pharmacist Pharmacist Clinician (PhC)/ Clinical Pharmacy Specialist
DX: Z79.01 Long term (current) use of anticoagulants (principal)
CPT/HCPCS: 36415; 85610

== ENCOUNTER → 2019-06-14 11:01 | Outpatient (CLI) | payer MEDICARE, OTHER, SELFPAY ==
[2019-06-14 12:53] LABS: BUN Creatinine Ratio 24.5 (6-22); Blood Urea Nitrogen 23 mg/dL (9-20); Calcium 9.2 mg/dL (8.4-10.2); Carbon Dioxide 31 mmol/L (22-32); Chloride 102 mmol/L (98-107); Estimated Glomerular Filt Rate > 60.0 mL/min (>60); Glucose 100 mg/dL (80-110); HEMOLYSIS < 15 (0-50); Lactate Dehydrogenase 485 U/L (313-618); Potassium 4.5 mmol/L (3.4-5.1); Sodium 140 mmol/L (137-145)
[2019-06-14 13:01] LABS: NT-proBNP (BNP-Adult 18+) 7660 pg/mL (<450)
[2019-06-14 13:11] LABS: Alanine Aminotransferase 18 IU/L (<50); Albumin 4.2 g/dL (3.5-5.0); Albumin Globulin Ratio 1.3 (1.0-2.8); Alkaline Phosphatase 73 U/L (38-126); Aspartate Aminotransferase 30 IU/L (17-59); Bilirubin Total 0.5 mg/dL (0.2-1.3); Globulin 3.2 g/dL (1.7-4.1); Total Protein 7.4 g/dL (6.3-8.2)
[2019-06-15 03:36] LABS: Haptoglobin 134 mg/dL (34-355)
[2019-06-20 13:48] LABS: Hemoglobin Free 3.4 mg/dL (0.0-4.9)
== END ==
PROVIDERS: PCP Internal Medicine; Referring Provider Internal Medicine; Visit Provider Internal Medicine Advanced Heart Failure and Transplant Cardiology
DX: Z95.811 Presence of heart assist device (principal); I25.5 Ischemic cardiomyopathy
CPT/HCPCS: 36415; 80053; 83010; 83051; 83615; 83880

== ENCOUNTER → 2019-06-21 10:52 | Outpatient (CLI) | payer MEDICARE, OTHER, SELFPAY ==
[2019-06-21 11:22] LABS: INR 2.9 (0.9-1.3); Prothrombin Time 32.8 SECONDS (10.1-12.7)
== END ==
PROVIDERS: PCP Internal Medicine; Referring Provider Pharmacist Pharmacist Clinician (PhC)/ Clinical Pharmacy Specialist; Visit Provider Pharmacist Pharmacist Clinician (PhC)/ Clinical Pharmacy Specialist
DX: Z79.01 Long term (current) use of anticoagulants (principal)
CPT/HCPCS: 36415; 85610

== ENCOUNTER → 2019-06-29 10:48 | Outpatient (CLI) | payer MEDICARE, OTHER, SELFPAY ==
[2019-06-29 11:46] LABS: INR 1.9 (0.9-1.3); Prothrombin Time 21.9 SECONDS (10.1-12.7)
== END ==
PROVIDERS: PCP Internal Medicine; Referring Provider Pharmacist Pharmacist Clinician (PhC)/ Clinical Pharmacy Specialist; Visit Provider Pharmacist Pharmacist Clinician (PhC)/ Clinical Pharmacy Specialist
DX: Z79.01 Long term (current) use of anticoagulants (principal)
CPT/HCPCS: 36415; 85610

== ENCOUNTER → 2019-06-30 10:20 | Outpatient (CLI) | payer MEDICARE, OTHER, SELFPAY ==
[2019-06-30 11:00] LABS: INR 2.2 (0.9-1.3)
== END ==
PROVIDERS: PCP Internal Medicine; Referring Provider Pharmacist Pharmacist Clinician (PhC)/ Clinical Pharmacy Specialist; Visit Provider Pharmacist Pharmacist Clinician (PhC)/ Clinical Pharmacy Specialist
DX: Z79.01 Long term (current) use of anticoagulants (principal)
CPT/HCPCS: 36415; 85610

== ENCOUNTER → 2019-07-03 10:39 | Outpatient (CLI) | payer MEDICARE, OTHER, SELFPAY ==
[2019-07-03 11:10] LABS: INR 2.8 (0.9-1.3); Prothrombin Time 32.4 SECONDS (10.1-12.7)
== END ==
PROVIDERS: PCP Internal Medicine; Referring Provider Pharmacist Pharmacist Clinician (PhC)/ Clinical Pharmacy Specialist; Visit Provider Pharmacist Pharmacist Clinician (PhC)/ Clinical Pharmacy Specialist
DX: Z79.01 Long term (current) use of anticoagulants (principal)
CPT/HCPCS: 36415; 85610

== ENCOUNTER → 2019-07-06 10:41 | Outpatient (CLI) | payer MEDICARE, OTHER, SELFPAY ==
[2019-07-06 11:36] LABS: INR 3.1 (0.9-1.3)
== END ==
PROVIDERS: PCP Internal Medicine; Referring Provider Pharmacist Pharmacist Clinician (PhC)/ Clinical Pharmacy Specialist; Visit Provider Pharmacist Pharmacist Clinician (PhC)/ Clinical Pharmacy Specialist
DX: Z79.01 Long term (current) use of anticoagulants (principal)
CPT/HCPCS: 36415; 85610

== ENCOUNTER → 2019-07-11 10:22 | Outpatient (CLI) | payer MEDICARE, OTHER, SELFPAY ==
[2019-07-11 11:06] LABS: INR 2.9 (0.9-1.3); Prothrombin Time 32.9 SECONDS (10.1-12.7)
== END ==
PROVIDERS: PCP Internal Medicine; Referring Provider Pharmacist Pharmacist Clinician (PhC)/ Clinical Pharmacy Specialist; Visit Provider Pharmacist Pharmacist Clinician (PhC)/ Clinical Pharmacy Specialist
DX: Z79.01 Long term (current) use of anticoagulants (principal)
CPT/HCPCS: 36415; 85610

== ENCOUNTER → 2019-07-18 09:47 | Outpatient (CLI) | payer MEDICARE, OTHER, SELFPAY ==
[2019-07-18 10:35] LABS: INR 2.6 (0.9-1.3); Prothrombin Time 29.4 SECONDS (10.1-12.7)
== END ==
PROVIDERS: PCP Internal Medicine; Referring Provider Pharmacist Pharmacist Clinician (PhC)/ Clinical Pharmacy Specialist; Visit Provider Pharmacist Pharmacist Clinician (PhC)/ Clinical Pharmacy Specialist
DX: Z79.01 Long term (current) use of anticoagulants (principal)
CPT/HCPCS: 36415; 85610

== ENCOUNTER → 2019-07-25 09:54 | Outpatient (CLI) | payer MEDICARE, OTHER, SELFPAY ==
[2019-07-25 12:09] LABS: INR 2.5 (0.9-1.3); Prothrombin Time 29.2 SECONDS (10.1-12.7)
== END ==
PROVIDERS: PCP Internal Medicine; Referring Provider Pharmacist Pharmacist Clinician (PhC)/ Clinical Pharmacy Specialist; Visit Provider Pharmacist Pharmacist Clinician (PhC)/ Clinical Pharmacy Specialist
DX: Z79.01 Long term (current) use of anticoagulants (principal)
CPT/HCPCS: 36415; 85610

== ENCOUNTER → 2019-08-11 10:16 | Outpatient (CLI) | payer MEDICARE, OTHER, SELFPAY ==
[2019-08-11 10:42] LABS: INR 3.4 (0.9-1.3); Prothrombin Time 38.4 SECONDS (10.1-12.7)
== END ==
PROVIDERS: PCP Internal Medicine; Referring Provider Pharmacist Pharmacist Clinician (PhC)/ Clinical Pharmacy Specialist; Visit Provider Pharmacist Pharmacist Clinician (PhC)/ Clinical Pharmacy Specialist
DX: Z79.01 Long term (current) use of anticoagulants (principal)
CPT/HCPCS: 36415; 85610

== ENCOUNTER → 2019-08-18 10:52 | Outpatient (CLI) | payer MEDICARE, OTHER, SELFPAY ==
[2019-08-18 11:29] LABS: INR 2.5 (0.9-1.3); Prothrombin Time 28.2 SECONDS (10.1-12.7)
== END ==
PROVIDERS: PCP Internal Medicine; Referring Provider Pharmacist Pharmacist Clinician (PhC)/ Clinical Pharmacy Specialist; Visit Provider Pharmacist Pharmacist Clinician (PhC)/ Clinical Pharmacy Specialist
DX: Z79.01 Long term (current) use of anticoagulants (principal)
CPT/HCPCS: 36415; 85610

== ENCOUNTER → 2019-08-23 10:55 | Outpatient (CLI) | payer MEDICARE, OTHER, SELFPAY ==
[2019-08-23 11:42] LABS: INR 2.6 (0.9-1.3); Prothrombin Time 29.8 SECONDS (10.1-12.7)
== END ==
PROVIDERS: PCP Internal Medicine; Referring Provider Pharmacist Pharmacist Clinician (PhC)/ Clinical Pharmacy Specialist; Visit Provider Pharmacist Pharmacist Clinician (PhC)/ Clinical Pharmacy Specialist
DX: Z79.01 Long term (current) use of anticoagulants (principal)
CPT/HCPCS: 36415; 85610

== ENCOUNTER → 2019-08-30 10:20 | Outpatient (CLI) | payer MEDICARE, OTHER, SELFPAY ==
[2019-08-30 10:46] LABS: INR 2.6 (0.9-1.3); Prothrombin Time 29.2 SECONDS (10.1-12.7)
== END ==
PROVIDERS: PCP Internal Medicine; Referring Provider Pharmacist Pharmacist Clinician (PhC)/ Clinical Pharmacy Specialist; Visit Provider Pharmacist Pharmacist Clinician (PhC)/ Clinical Pharmacy Specialist
DX: Z79.01 Long term (current) use of anticoagulants (principal)
CPT/HCPCS: 36415; 85610

== ENCOUNTER → 2019-09-08 11:08 | Outpatient (CLI) | payer MEDICARE, OTHER, SELFPAY ==
[2019-09-08 11:32] LABS: INR 2.2 (0.9-1.3); Prothrombin Time 25.6 SECONDS (10.1-12.7)
== END ==
PROVIDERS: PCP Internal Medicine; Referring Provider Pharmacist Pharmacist Clinician (PhC)/ Clinical Pharmacy Specialist; Visit Provider Pharmacist Pharmacist Clinician (PhC)/ Clinical Pharmacy Specialist
DX: Z79.01 Long term (current) use of anticoagulants (principal)
CPT/HCPCS: 36415; 85610

== ENCOUNTER → 2019-09-15 10:21 | Outpatient (CLI) | payer MEDICARE, OTHER, SELFPAY ==
[2019-09-15 10:57] LABS: INR 2.8 (0.9-1.3); Prothrombin Time 31.3 SECONDS (10.1-12.7)
== END ==
PROVIDERS: PCP Internal Medicine; Referring Provider Pharmacist Pharmacist Clinician (PhC)/ Clinical Pharmacy Specialist; Visit Provider Pharmacist Pharmacist Clinician (PhC)/ Clinical Pharmacy Specialist
DX: Z79.01 Long term (current) use of anticoagulants (principal)
CPT/HCPCS: 36415; 85610

== ENCOUNTER → 2019-09-22 10:37 | Outpatient (CLI) | payer MEDICARE, OTHER, SELFPAY ==
[2019-09-22 11:55] LABS: INR 2.4 (0.9-1.3); Prothrombin Time 27.4 SECONDS (10.1-12.7)
== END ==
PROVIDERS: PCP Internal Medicine; Referring Provider Pharmacist Pharmacist Clinician (PhC)/ Clinical Pharmacy Specialist; Visit Provider Pharmacist Pharmacist Clinician (PhC)/ Clinical Pharmacy Specialist
DX: Z79.01 Long term (current) use of anticoagulants (principal)
CPT/HCPCS: 36415; 85610

== ENCOUNTER → 2019-09-29 11:09 | Outpatient (CLI) | payer MEDICARE, OTHER, SELFPAY ==
[2019-09-29 12:58] LABS: INR 2.7 (0.9-1.3); Prothrombin Time 30.9 SECONDS (10.1-12.7)
== END ==
PROVIDERS: PCP Internal Medicine; Referring Provider Internal Medicine Advanced Heart Failure and Transplant Cardiology; Visit Provider Internal Medicine Advanced Heart Failure and Transplant Cardiology
DX: Z79.01 Long term (current) use of anticoagulants (principal); Z95.811 Presence of heart assist device
CPT/HCPCS: 36415; 85610

== ENCOUNTER 2019-10-07 08:38 | Emergency (ER) | payer MEDICARE, OTHER, SELFPAY ==
[2019-10-07] VITALS (13 sets, daily range): BP systolic 100–103; BP diastolic 63–76; PULSE 50–83; RESP 12–32; TEMP 36.4; O2SAT 90–100; BMI 25.2
--- NOTE | 2019-10-07 08:54 | DI.RAD.S_ITS ---
PROCEDURE: XR HIP W PEL IF DONE RT 2V INDICATIONS: right hip pain. fall on blood thinners TECHNIQUE: AP pelvis with lateral view(s) of the right hip(s). COMPARISON: None. FINDINGS: Bones: A moderately displaced fractures seen involving the intertrochanteric right femoral neck. No hip dislocation is seen. No fractures of the bones of the pelvis can be seen. Age-appropriate bony degenerative changes are seen. No suspicious lytic or blastic lesions are seen. Soft tissues: Right groin clips are seen. The visualized bowel gas pattern is normal. No suspicious soft tissue calcifications. IMPRESSION: Moderately displaced intertrochanteric fracture of the right femoral neck. Dictated by: Alex Rodriguez M.D. on 10/07/2019 at 8:59 Approved by: Alex Rodriguez M.D. on 10/07/2019 at 9:01
--- NOTE | 2019-10-07 08:57 | DI.RAD.S_ITS ---
PROCEDURE: XR CHEST 1V INDICATIONS: sob TECHNIQUE: One view of the chest was acquired. COMPARISON: [facility], CR, CHEST 1 VIEW, 11/26/2015, 14:55. [facility], CR, CHEST 1 VIEW, 05/11/2016, 22:00. [facility], CR, XR HIP W PEL IF DONE RT 2V, 10/07/2019, 9:02. [facility], CT, CT HEAD/BRAIN WO CON, 10/07/2019, 9:56. [facility], CR, XR CHEST 1V, 01/19/2018, 14:38. FINDINGS: Surgical changes and devices: An AICD is seen. Left chest wall postoperative change is again seen. Lungs and pleura: No focal infiltrates are seen. No large pleural effusions or pneumothorax can be seen on this supine study. Mediastinum: The cardiac contours are moderately enlarged. The aorta demonstrates calcification and tortuosity. Bones and chest wall: No suspicious bony lesions. Age-appropriate bony degenerative changes are seen. Overlying soft tissues appear unremarkable. IMPRESSION: Cardiomegaly, as before. No acute abnormality can be seen on this supine portable chest study. Postoperative and degenerative changes are seen. Dictated by: Alex Rodriguez M.D. on 10/07/2019 at 9:19 Approved by: Alex Rodriguez M.D. on 10/07/2019 at 9:21
[2019-10-07] MEDS: ALBUTEROL/IPRATROPIUM 3 ML AMPUL INH ×2 (09:07)
--- NOTE | 2019-10-07 09:13 | ED.GENADULT ---
HPI - General Adult General Chief complaint: Trauma Stated complaint: GLF, R hip pain Time Seen by Provider: 10/07/19 09:05 History of Present Illness HPI narrative: 79-year-old gentleman with an LVAD and AICD in place followed at the [facility] awoke this morning and noticed double vision with no headache or other neurologic complaints. His helped him get dressed and as he went into the living room and was going to sit on the chair he had adjusted because of the double vision and completely missed the chair landing instead on his right buttock and hip. Immediate pain, loud pop noted and unable to get. He does not describe hitting his head nor having any type of syncopal episode.He was moderately dyspneic and wheezing on arrival in responded nicely to an initial nebulizer treatment and pain medication for pain control. 1044 is now available. She reports that his speech was also a bit more garbled this morning and because of the double vision his gait was less steady and he was using his walker which he does not typically do. He did awake with symptoms. Related Data Home Medications Medication Instructions Recorded Confirmed atorvastatin [Lipitor] 10 mg PO DAILY #0 05/11/16 01/19/18 lorazepam 0.5 - 1 mg PO Q8H PRN #0 05/11/16 01/19/18 acetaminophen [Tylenol] 650 mg PO PRN PRN 01/19/18 01/19/18 albuterol sulfate 2.5 mg INHALATION Q6-8H PRN 01/19/18 01/19/18 albuterol sulfate 3 ml INHALATION PRN PRN 01/19/18 01/19/18 albuterol sulfate [ProAir HFA] 2 puff INHALATION Q4H PRN 01/19/18 01/19/18 amiodarone 200 mg PO DAILY 01/19/18 01/19/18 aspirin 324 mg PO DAILY 01/19/18 01/19/18 docusate sodium 100 mg PO PRN PRN 01/19/18 01/19/18 fluticasone propion-salmeterol 1 puff INHALATION BID 01/19/18 01/19/18 [Advair Diskus] glipizide 5 mg PO DAILY 01/19/18 01/19/18 loratadine 10 mg PO DAILY PRN 01/19/18 01/19/18 magnesium hydroxide 400 mg PO BID 01/19/18 01/19/18 metoprolol succinate 12.5 mg PO BID 01/19/18 01/19/18 multivitamin 1 tab PO DAILY 01/19/18 01/19/18 pantoprazole 40 mg PO DAILY 01/19/18 01/19/18 polyethylene glycol 3350 17 g PO DAILY 01/19/18 01/19/18 prednisone 10 mg PO DAILY PRN 01/19/18 01/19/18 sennosides [senna] 17.2 mg PO BEDTIME PRN 01/19/18 01/19/18 sodium chloride 2 spray INTRANASAL Q2H PRN 01/19/18 01/19/18 tiotropium bromide [Spiriva with 1 cap INHALATION QAM 01/19/18 01/19/18 HandiHaler] torsemide 10 mg PO DAILY 01/19/18 01/19/18 triazolam 0.125 mg PO BEDTIME PRN 01/19/18 01/19/18 warfarin 4 mg PO SUMOWETHFRSA 01/19/18 01/19/18 warfarin 5 mg PO TU 01/19/18 01/19/18 Allergies Allergy/AdvReac Type Severity Reaction Status Date / Time metformin Allergy Intermediate SOB Verified 10/07/19 09:18 azithromycin [AZITHROMYCIN] Allergy Unknown Verified 10/07/19 09:18 lovastatin [LOVASTATIN] Allergy Unknown NECK PAIN Verified 10/07/19 09:18 oxycodone [From PERCOCET] Allergy Unknown RASH Verified 10/07/19 09:18 Penicillins Allergy Unknown Verified 10/07/19 09:18 pravastatin [PRAVASTATIN] Allergy Unknown Verified 10/07/19 09:18 Sulfa (Sulfonamide Allergy Unknown Verified 10/07/19 09:18 Antibiotics) levofloxacin [From LEVAQUIN] AdvReac Unknown BURSITIS Verified 10/07/19 09:18 Review of Systems Review of Systems Narrative: Over the last number of days to weeks he denies fever, cough, chills, nausea, vomiting, diarrhea. He has not had any specific chest pain has not been more short of breath. He notes that his poor peripheral perfusion is unchanged Remainder of review of systems is unremarkable Patient History Medical History CHF (congestive heart failure) (Chronic) COPD (chronic obstructive pulmonary disease) (Chronic) LVAD (left ventricular assist device) present (Chronic) Surgical History AICD (automatic cardioverter/defibrillator) present (Acute) Social History marital status: Smoking Status: Current some day smoker Smoking Status: Current some day smoker tobacco type: cigarettes Substance Use Type: marijuana Exam Narrative Exam Narrative: MAP 84, HR 72 100% 2L NC General: Somewhat frail-appearing, in moderate pain but able to speak in full sentences and give a disjointed history. HEENT: Moist mucous membranes, normal sclera with reactive pupils, Neck: No JVD, supple Respiratory: Lungs with scattered wheeze in all lung martines wheezing no rales no rhonchi. Full and symmetrical air movement Cardiac: Mechanical hum heard through the entire precordium radiating to the abdomen Abdomen: Soft nontender good bowel tones, no flank pain Skin: Been skin, no new bruising Neurologic: Complains of double vision with than ocular vision with images equal in [id number]-poef. Monocular vision is normal bilaterally. He has no peripheral field cuts with monocular or binocular vision he is otherwise Grossly neurologically intact with no obvious neurologic asymmetries or abnormalities (aside from pain in right hip) Extremities: Right hip pain without bruises or contusion, leg is externally rotated and tender with any movement of the leg. Violaceous feet secondary to chronic poor peripheral circulation. No skin breakdown Psych: Cooperative, speech content is fluent NIH =1 for mild dysarthria Initial Vital Signs Initial Vital Signs: Vital Signs Temperature 97.6 F 10/07/19 08:24 Pulse Rate 52 L 10/07/19 08:24 Pulse Oximetry 96 10/07/19 08:24 Course Orders Ordered: ED Orders 10/07/19 08:54 XR hip w pel if done RT 2V Stat 10/07/19 08:57 XR chest 1V Stat 10/07/19 08:59 EKG-12 Lead Stat Measure peak expiratory flow ONCE RT Consult Eval and Treat Now 10/07/19 09:21 Complete Blood Count AUTO DIFF Stat 10/07/19 09:36 Urinalysis and Microscopic Stat 10/07/19 09:38 CT head/brain wo con Stat 10/07/19 10:13 Comprehensive Metabolic Panel Stat Lactate (Lactic Acid) Stat Prothrombin Time INR Stat Troponin I Stat Sodium Chloride (Normal Saline 0.9%) 1,000 mls @ 150 mls/hr IV CONT PAKO Last Admin: 10/07/19 13:16 Dose: 150 mls/hr Documented by: SHAN Discontinued Medications Albuterol/Ipratropium (Duoneb) 3 ml INH NOW ONE Stop: 10/07/19 09:03 Last Admin: 10/07/19 09:07 Dose: 3 ml Documented by: MICHAEL Hydromorphone HCl (Dilaudid) 0.5 mg IV NOW ONE Stop: 10/07/19 08:56 Last Admin: 10/07/19 17:13 Dose: Not Given Documented by: SHAN Ondansetron HCl (Zofran) 4 mg IV NOW ONE Stop: 10/07/19 08:56 Last Admin: 10/07/19 17:13 Dose: Not Given Documented by: SHAN Vital Signs Vital signs: Vital Signs - 8 hr 10/07/19 10:09 10/07/19 10:11 10/07/19 10:30 Pulse Rate 76 72 80 Respiratory Rate 22 22 Blood Pressure 100/76 Pulse Oximetry 100 100 96 10/07/19 11:30 10/07/19 13:00 10/07/19 14:13 Pulse Rate 75 71 82 Respiratory Rate 14 12 19 Blood Pressure 103/63 Pulse Oximetry 99 100 99 10/07/19 14:30 10/07/19 17:07 Pulse Rate 82 82 Respiratory Rate 28 H 24 Blood Pressure Pulse Oximetry 99 99 Medical Decision Making Medical Records Medical records reviewed: Yes I reviewed the patient's medical records. Lab Data Lab results reviewed: Yes I reviewed the patient's lab results. Result diagrams: 10/07/19 09:21 10/07/19 10:13 Labs: Lab Results 10/07/19 10/07/19 10/07/19 Range/Units 09:21 09:36 10:13 WBC 14.8 H (4.5-11.0) X10^3/uL RBC 5.18 (4.5-5.9) X10^6/uL Hgb 15.6 (13.5-17.5) g/dL Hct 46.2 (41-53) % MCV 89.1 (80-100) fL MCH 30.2 (26-34) PG MCHC 33.9 (30-36) % RDW 13.4 (11.6-14.8) % Plt Count 161 (150-400) X10^3/uL Neut % (Auto) 83.3 H (50-75) % Lymph % (Auto) 9.6 L (25-40) % [place] % (Auto) 5.5 (3-14) % Eos % (Auto) 1.2 L (2-4) % Baso % (Auto) 0.4 (0-2) % Neut # (Auto) 64936 H (1794-5557) /uL Lymph # (Auto) 1400 (8524-8260) /uL [place] # (Auto) 800 (0-900) /uL Eos # (Auto) 200 (0-450) /uL Baso # (Auto) 100 (0-100) /uL PT (10.1-12.7) SECONDS INR (0.9-1.3) Sodium 138 (137-145) mmol/L Potassium 4.5 (3.4-5.1) mmol/L Chloride 102 (98-107) mmol/L Carbon Dioxide 35 H (22-32) mmol/L BUN 24 H (9-20) mg/dL Creatinine 0.93 (0.66-1.25) mg/dL Estimated GFR > 60.0 (>60) mL/min BUN/Creatinine Ratio 25.8 H (6-22) Glucose 143 H (80-110) mg/dL Lactate (0.7-2.1) mmol/L Calcium 8.6 (8.4-10.2) mg/dL Total Bilirubin 0.7 (0.2-1.3) mg/dL AST 28 (17-59) IU/L ALT 19 (<50) IU/L Alkaline Phosphatase 67 (38-126) U/L Troponin I (0.01-0.034) ng/mL Total Protein 6.5 (6.3-8.2) g/dL Albumin 3.7 (3.5-5.0) g/dL Globulin 2.8 (1.7-4.1) g/dL Albumin/Globulin Ratio 1.3 (1.0-2.8) Urine Color Yellow Urine Appearance Clear Urine pH 6.0 (4.5-8.0) Ur Specific [place] 1.020 (1.000-1.035) Urine Protein 1+ H (Negative) Urine Glucose (UA) Negative (Negative) g/dL Urine Ketones Negative (NEGATIVE) Urine Occult Blood Negative (Negative) Urine Nitrate Negative (Negative) Urine Bilirubin Negative (NEGATIVE) Urine Urobilinogen 0.2 (0.2) E.U./dL Ur Leukocyte Esterase Negative (NEGATIVE) Urine RBC None seen (0-5/HPF) Urine WBC None seen (0-5/HPF) Urine Bacteria None seen (None) Ur Culture Indicated? Cult not indicated Micro UA Comment Microscopic normal COVID-19 PCR (Negative) 10/07/19 10/07/19 10/07/19 Range/Units 10:13 10:13 10:13 WBC (4.5-11.0) X10^3/uL RBC (4.5-5.9) X10^6/uL Hgb (13.5-17.5) g/dL Hct (41-53) % MCV (80-100) fL MCH (26-34) PG MCHC (30-36) % RDW (11.6-14.8) % Plt Count (150-400) X10^3/uL Neut % (Auto) (50-75) % Lymph % (Auto) (25-40) % [place] % (Auto) (3-14) % Eos % (Auto) (2-4) % Baso % (Auto) (0-2) % Neut # (Auto) (0807-6666) /uL Lymph # (Auto) (1881-7379) /uL [place] # (Auto) (0-900) /uL Eos # (Auto) (0-450) /uL Baso # (Auto) (0-100) /uL PT 26.3 H (10.1-12.7) SECONDS INR 2.3 H (0.9-1.3) Sodium (137-145) mmol/L Potassium (3.4-5.1) mmol/L Chloride (98-107) mmol/L Carbon Dioxide (22-32) mmol/L BUN (9-20) mg/dL Creatinine (0.66-1.25) mg/dL Estimated GFR (>60) mL/min BUN/Creatinine Ratio (6-22) Glucose (80-110) mg/dL Lactate 0.8 (0.7-2.1) mmol/L Calcium (8.4-10.2) mg/dL Total Bilirubin (0.2-1.3) mg/dL AST (17-59) IU/L ALT (<50) IU/L Alkaline Phosphatase (38-126) U/L Troponin I 0.046 H (0.01-0.034) ng/mL Total Protein (6.3-8.2) g/dL Albumin (3.5-5.0) g/dL Globulin (1.7-4.1) g/dL Albumin/Globulin Ratio (1.0-2.8) Urine Color Urine Appearance Urine pH (4.5-8.0) Ur Specific [place] (1.000-1.035) Urine Protein (Negative) Urine Glucose (UA) (Negative) g/dL Urine Ketones (NEGATIVE) Urine Occult Blood (Negative) Urine Nitrate (Negative) Urine Bilirubin (NEGATIVE) Urine Urobilinogen (0.2) E.U./dL Ur Leukocyte Esterase (NEGATIVE) Urine RBC (0-5/HPF) Urine WBC (0-5/HPF) Urine Bacteria (None) Ur Culture Indicated? Micro UA Comment COVID-19 PCR (Negative) 10/07/19 Range/Units 11:01 WBC (4.5-11.0) X10^3/uL RBC (4.5-5.9) X10^6/uL Hgb (13.5-17.5) g/dL Hct (41-53) % MCV (80-100) fL MCH (26-34) PG MCHC (30-36) % RDW (11.6-14.8) % Plt Count (150-400) X10^3/uL Neut % (Auto) (50-75) % Lymph % (Auto) (25-40) % [place] % (Auto) (3-14) % Eos % (Auto) (2-4) % Baso % (Auto) (0-2) % Neut # (Auto) (6330-6166) /uL Lymph # (Auto) (8423-2878) /uL [place] # (Auto) (0-900) /uL Eos # (Auto) (0-450) /uL Baso # (Auto) (0-100) /uL PT (10.1-12.7) SECONDS INR (0.9-1.3) Sodium (137-145) mmol/L Potassium (3.4-5.1) mmol/L Chloride (98-107) mmol/L Carbon Dioxide (22-32) mmol/L BUN (9-20) mg/dL Creatinine (0.66-1.25) mg/dL Estimated GFR (>60) mL/min BUN/Creatinine Ratio (6-22) Glucose (80-110) mg/dL Lactate (0.7-2.1) mmol/L Calcium (8.4-10.2) mg/dL Total Bilirubin (0.2-1.3) mg/dL AST (17-59) IU/L ALT (<50) IU/L Alkaline Phosphatase (38-126) U/L Troponin I (0.01-0.034) ng/mL Total Protein (6.3-8.2) g/dL Albumin (3.5-5.0) g/dL Globulin (1.7-4.1) g/dL Albumin/Globulin Ratio (1.0-2.8) Urine Color Urine Appearance Urine pH (4.5-8.0) Ur Specific [place] (1.000-1.035) Urine Protein (Negative) Urine Glucose (UA) (Negative) g/dL Urine Ketones (NEGATIVE) Urine Occult Blood (Negative) Urine Nitrate (Negative) Urine Bilirubin (NEGATIVE) Urine Urobilinogen (0.2) E.U./dL Ur Leukocyte Esterase (NEGATIVE) Urine RBC (0-5/HPF) Urine WBC (0-5/HPF) Urine Bacteria (None) Ur Culture Indicated? Micro UA Comment COVID-19 PCR Negative (Negative) Urine Dip Bedside Urine Glucose Negative Bedside Urine Bilirubin + 1 Bedside Urine Ketone - Negative Urine Specific [place] 1.020 Bedside Urine Occult Blood - Negative Bedside Urine pH 6.0 Bedside Urine Protein + 30 Bedside Urine Urobilinogen +/- 1mg Bedside Urine Nitrite - Negative Bedside Urine Leukocytes +/- 15 Esterase Point of care testing: Urine Dip Bedside Urine Glucose Negative Bedside Urine Bilirubin + 1 Bedside Urine Ketone - Negative Urine Specific [place] 1.020 Bedside Urine Occult Blood - Negative Bedside Urine pH 6.0 Bedside Urine Protein + 30 Bedside Urine Urobilinogen +/- 1mg Bedside Urine Nitrite - Negative Bedside Urine Leukocytes +/- 15 Esterase Imaging Data X-ray hip and pelvis: Radiologist's Impression: FINDINGS: Bones: A moderately displaced fractures seen involving the intertrochanteric right femoral neck. No hip dislocation is seen. No fractures of the bones of the pelvis can be seen. Age-appropriate bony degenerative changes are seen. No suspicious lytic or blastic lesions are seen. Soft tissues: Right groin clips are seen. The visualized bowel gas pattern is normal. No suspicious soft tissue calcifications. IMPRESSION: Moderately displaced intertrochanteric fracture of the right femoral neck. Dictated by: Alex Rodriguez M.D. on 10/07/2019 at 8:59 Chest x-ray: Radiologist's Impression: FINDINGS: Surgical changes and devices: An AICD is seen. Left chest wall postoperative change is again seen. Lungs and pleura: No focal infiltrates are seen. No large pleural effusions or pneumothorax can be seen on this supine study. Mediastinum: The cardiac contours are moderately enlarged. The aorta demonstrates calcification and tortuosity. Bones and chest wall: No suspicious bony lesions. Age-appropriate bony degenerative changes are seen. Overlying soft tissues appear unremarkable. IMPRESSION: Cardiomegaly, as before. No acute abnormality can be seen on this supine portable chest study. Postoperative and degenerative changes are seen. Dictated by: Alex Rodriguez M.D. on 10/07/2019 at 9:19 CT scan - head: Radiologist's Impression: IMPRESSION: 1. No acute intracranial abnormalities. If clinically indicated, MRI is recommended for further evaluation. 2. Suspect a small area of old infarct in the right occipital lobe with mild encephalomalacia. There are bilateral old thalamic lacunar infarcts. 3. Cerebral volume loss and chronic microvascular ischemic changes. Dictated by: Annabella Cox M.D. on 10/07/2019 at 11:09 ECG Data Attestation: I personally reviewed and interpreted this ECG as follows: Interpretation: Patient does have an LVAD in place EKG is Interpreted as normal sinus rhythm left axis deviation T-wave abnormalities Priors are not available for comparison MDM Narrative Medical decision making narrative: 79-year-old gentleman with an LVAD anticoagulated awoke this morning with double vision causing gait unsteadiness reports some mild dysarthria. In going to set he missed chair has fallen and has a moderately displaced intratrochanteric fracture of the right femoral neck Concern for stroke, as it is a ?wake-up stroke? with unsure time of onset, low NIH and he is anticoagulated as well as on an LVAD he is not a tPA candidate Will contact [facility] for transfer of care 11:35 [facility] transfer. Will talk with Ortho, review hip/xray/head CT studies. Will need to figure out which service to admit patient for LVAD management with subsequent CVA (NIH=1), and R hip fracture. 1:15pm Call to transfer. Waiting for physician calls and dispo planning. 3:09pm Spoke with VAD coodinator. Still waiting for bed assignment to call for transport and to talk with accepting physician, expected to be Dr Yoselyn Bowers 3:22 bed is available and request is to have patient at [facility] month like after 18:00. Patient is requesting food, however he has failed his swallow evaluation and will need a full speech therapy swallow evaluation to determine what texture of food will be safe. In the meantime will continue with maintenance fluids Covid negative 4:00pm transport has been called. To [facility]. Discharge Plan Departure Patient Disposition: [facility] Clinical Impression: LVAD (left ventricular assist device) present Closed hip fracture Qualifiers: Encounter type: initial encounter Laterality: right Qualified Code(s): S72.001A - Fracture of unspecified part of neck of right femur, initial encounter for closed fracture Stroke Qualifiers: CVA mechanism: unspecified Qualified Code(s): I63.9 - Cerebral infarction, unspecified Dysphagia Qualifiers: Dysphagia type: unspecified Qualified Code(s): R13.10 - Dysphagia, unspecified Prescriptions: No Action atorvastatin [Lipitor] 10 MG tablet 10 mg PO DAILY Qty: 0 RF: 0 lorazepam 1 MG tablet 0.5 - 1 mg PO Q8H PRN (Reason: Anxiety) Qty: 0 RF: 0 fluticasone propion-salmeterol [Advair Diskus] 500-50 mcg/dose Blister With Device 1 puff Inhalation BID RF: 0 metoprolol succinate 25 mg Tablet Extended Release 24 Hr 12.5 mg PO BID RF: 0 multivitamin Tablet 1 tab PO DAILY RF: 0 albuterol sulfate 0.63 mg/3 mL Solution For Nebulization 3 ml Inhalation PRN PRN (Reason: Shortness Of Breath) RF: 0 albuterol sulfate 2.5 mg /3 mL (0.083 %) Solution For Nebulization 2.5 mg INHALATION Q6-8H PRN (Reason: Shortness Of Breath) RF: 0 amiodarone 200 mg Tablet 200 mg PO DAILY RF: 0 docusate sodium 100 mg Capsule 100 mg PO PRN PRN (Reason: Constipation) RF: 0 aspirin 81 mg Tablet,Chewable 324 mg PO DAILY RF: 0 loratadine 10 mg Tablet 10 mg PO DAILY PRN (Reason: Allergy Symptoms) RF: 0 glipizide 5 mg Tablet 5 mg PO DAILY RF: 0 magnesium hydroxide 400 mg (170 mg) Tablet,Chewable 400 mg PO BID RF: 0 sennosides [senna] 8.6 mg Tablet 17.2 mg PO BEDTIME PRN (Reason: Constipation) RF: 0 acetaminophen [Tylenol] 325 mg Tablet 650 mg PO PRN PRN (Reason: pain) RF: 0 prednisone 10 mg Tablet 10 mg PO DAILY PRN (Reason: unknown) RF: 0 torsemide 20 mg Tablet 10 mg PO DAILY RF: 0 polyethylene glycol 3350 17 gram Powder In Packet 17 g PO DAILY RF: 0 triazolam 0.125 mg Tablet 0.125 mg PO BEDTIME PRN (Reason: Sleep) RF: 0 pantoprazole 40 mg Tablet,Delayed Release (Dr/Ec) 40 mg PO DAILY RF: 0 warfarin 2 mg Tablet 5 mg PO RF: 0 warfarin 2 mg Tablet 4 mg PO WE RF: 0 albuterol sulfate [ProAir HFA] 90 mcg/actuation HFA aerosol inhaler 2 puff Inhalation Q4H PRN (Reason: Shortness Of Breath) RF: 0 sodium chloride 0.65 % Aerosol,[place] 2 spray INTRANASAL Q2H PRN (Reason: Congestion) RF: 0 tiotropium bromide [Spiriva with HandiHaler] 18 mcg capsule, w/inhalation device 1 cap Inhalation QAM RF: 0 Referrals: Rohan Batres MD [Primary Care Provider] -
[2019-10-07 09:30] LABS: Add Manual Diff / Slide Review NO; Basophils Absolute Auto 100 /uL (0-100); Basophils Percent Auto 0.4 % (0-2); Eosinophils Absolute Auto 200 /uL (0-450); Eosinophils Percent Auto 1.2 % (2-4); Hematocrit 46.2 % (41-53); Hemoglobin 15.6 g/dL (13.5-17.5); Lymphocytes Absolute Auto 1400 /uL (1100-4500); Lymphocytes Percent Auto 9.6 % (25-40); Mean Corpuscular HGB Conc 33.9 % (30-36); Mean Corpuscular Hemoglobin 30.2 PG (26-34); Mean Corpuscular Volume 89.1 fL (80-100); Monocytes Absolute Auto 800 /uL (0-900); Monocytes Percent Auto 5.5 % (3-14); Neutrophils Absolute Auto 12300 /uL (1500-7000); Neutrophils Percent Auto 83.3 % (50-75); Platelet Count 161 X10^3/uL (150-400); Red Blood Cell Count 5.18 X10^6/uL (4.5-5.9); Red Cell Distribution Width 13.4 % (11.6-14.8); White Blood Cell Count 14.8 X10^3/uL (4.5-11.0)
--- NOTE | 2019-10-07 09:31 | PC.NURSE ---
pt states is having double vision that began before fall today md at bedside performing nuero exam
--- NOTE | 2019-10-07 09:38 | DI.CT.S_ITS ---
PROCEDURE: CT HEAD/BRAIN WO CON INDICATIONS: new doiuble vision this am TECHNIQUE: Noncontrast 4.5 mm thick angled axial sections acquired from the foramen magnum to the vertex, with coronal and sagittal reformats. For radiation dose reduction, the following was used: automated exposure control, adjustment of mA and/or kV according to patient size. COMPARISON: None. FINDINGS: Image quality: Excellent. CSF spaces: Basal cisterns are patent. No extra-axial fluid collections. The ventricles are symmetric in size and shape. Brain: No intracranial bleeds or masses. There are old lacunar infarcts in thalami bilaterally. Mild encephalomalacia in the right occipital lobe suggest small old infarct. There is cerebral volume loss for age, with resultant ventricular and sulcal prominence. There are periventricular and deep white matter chronic small vessel ischemic changes. There is intracranial internal carotid artery atherosclerosis. Skull and face: Calvarium and visualized facial bones appear intact, without suspicious lesions. Sinuses: Visualized sinuses and mastoids are clear. IMPRESSION: 1. No acute intracranial abnormalities. If clinically indicated, MRI is recommended for further evaluation. 2. Suspect a small area of old infarct in the right occipital lobe with mild encephalomalacia. There are bilateral old thalamic lacunar infarcts. 3. Cerebral volume loss and chronic microvascular ischemic changes. Dictated by: Annabella Cox M.D. on 10/07/2019 at 11:09 Approved by: Annabella Cox M.D. on 10/07/2019 at 11:13
[2019-10-07 09:51] LABS: Bacteria Urine None Seen; RBC Urine None Seen (0-5/HPF); WBC Urine None Seen (0-5/HPF)
[2019-10-07 09:52] LABS: Appearance Urine UA CLEAR; Bilirubin Urine UA NEGATIVE (NEGATIVE); Color Urine UA YELLOW; Glucose Urine UA NEGATIVE (Negative); Ketones Urine UA NEGATIVE (NEGATIVE); Leukocyte Esterase Urine UA NEGATIVE (NEGATIVE); Nitrite Urine UA NEGATIVE (Negative); Occult Blood Urine UA NEGATIVE (Negative); Protein Urine UA 1+ (Negative); Urobilinogen Urine UA 0.2 E.U./dL (0.2)
[2019-10-07 10:00] LABS: Culture Indicated Urine Cult Not Indicated; Urine Comments Microscopic Normal
--- NOTE | 2019-10-07 10:17 | PC.NURSE ---
pt back in room from ct placed back on panel monitor
[2019-10-07 10:29] LABS: Lactate (Lactic Acid) 0.8 mmol/L (0.7-2.1)
[2019-10-07 10:30] LABS: Alanine Aminotransferase 19 IU/L (<50); Albumin 3.7 g/dL (3.5-5.0); Albumin Globulin Ratio 1.3 (1.0-2.8); Alkaline Phosphatase 67 U/L (38-126); Aspartate Aminotransferase 28 IU/L (17-59); BUN Creatinine Ratio 25.8 (6-22); Bilirubin Total 0.7 mg/dL (0.2-1.3); Blood Urea Nitrogen 24 mg/dL (9-20); Calcium 8.6 mg/dL (8.4-10.2); Carbon Dioxide 35 mmol/L (22-32); Chloride 102 mmol/L (98-107); Estimated Glomerular Filt Rate > 60.0 mL/min (>60); Globulin 2.8 g/dL (1.7-4.1); Glucose 143 mg/dL (80-110); HEMOLYSIS < 15 (0-50); Potassium 4.5 mmol/L (3.4-5.1); Sodium 138 mmol/L (137-145); Total Protein 6.5 g/dL (6.3-8.2)
[2019-10-07 11:02] LABS: Troponin I 0.046 ng/mL (0.01-0.034)
--- NOTE | 2019-10-07 11:04 | PC.NURSE ---
pt swabed for covid and pt updated on poc by md at bedside
--- NOTE | 2019-10-07 11:16 | PC.NURSE ---
x2 sutures placed by md at bedside child tolorated procedure well
--- NOTE | 2019-10-07 11:17 | PC.NURSE ---
disregaured prev noted
[2019-10-07 11:20] LABS: INR 2.3 (0.9-1.3); Prothrombin Time 26.3 SECONDS (10.1-12.7)
--- NOTE | 2019-10-07 11:32 | PC.NURSE ---
resp at bedside for follow up asessment pt resting in bed vs on cheese wrapper resp even unlabored while at rest pt sleeping arousable to verbal stimuli [id number] at this time
[2019-10-07 11:58] LABS: COVID19 -Nasal RAPID Negative (Negative)
[2019-10-07] MEDS: SODIUM CHLORIDE 0.9% 1,000 ML 150 ML IV (13:16)
--- NOTE | 2019-10-07 14:11 | PC.NURSE ---
pt resting in bed vs on site monitor family at bedside
--- NOTE | 2019-10-07 15:58 | PC.NURSE ---
pt resting in bed sleeping on cardaic monitor arousable to verbal stimuli
--- NOTE | 2019-10-07 17:20 | PC.NURSE ---
sbar given to nirmal aparicio [facility]
--- NOTE | 2019-10-07 17:55 | PC.NURSE ---
sbar to [facility] at bedside belongings sent with pt on transfer contacted updated on pt transfer status
== END 2019-10-07 18:06 | disposition short-term general hospital (02) ==
PROVIDERS: Emergency Provider Emergency Medicine; PCP Internal Medicine
DX: S72.001A Fracture of unspecified part of neck of right femur, initial encounter for closed fracture (principal); I63.9 Cerebral infarction, unspecified; R13.10 Dysphagia, unspecified; Z95.811 Presence of heart assist device; R06.02 Shortness of breath; H53.2 Diplopia
CPT/HCPCS: 36415; 70450; 71045; 73502; 80053; 81001; 81003; 83605; 84484; 85025; 85610; 87635; 93005; 94640; 96360; 96361; 99284; 99285